=== PATIENT | female | born 1970 | race Caucasian/White ===

== ENCOUNTER → 2017-10-03 | Outpatient (CLI) | payer BC | END | disposition home or self-care (01) | LOC: LABWHC1 10:59 | PROVIDERS: ATTEND Otolaryngology | DX: E06.9 Thyroiditis, unspecified (principal); E03.9 Hypothyroidism, unspecified; J30.89 Other allergic rhinitis | CPT/HCPCS: 36415; 84439; 84443; 86376 ==

== ENCOUNTER → 2018-01-05 | Outpatient (CLI) | payer BC | END | disposition home or self-care (01) | LOC: LABWHC1 17:18 → LAB 17:18 | PROVIDERS: ATTEND Otolaryngology | DX: E03.9 Hypothyroidism, unspecified (principal) | CPT/HCPCS: 84439 ==

== ENCOUNTER → 2018-08-25 | Outpatient (CLI) | payer BC ==
[2018-08-25 16:05] LABS: T4, Free (Free Thyroxine) 0.83 ng/dL (0.78-2.19)
== END ==
LOC: LABWHC1 14:36
PROVIDERS: ATTEND Otolaryngology
DX: E03.9 Hypothyroidism, unspecified (principal); Z79.899 Other long term (current) drug therapy
CPT/HCPCS: 36415; 84439; 84443

== ENCOUNTER → 2019-08-17 | Outpatient (CLI) | payer BC | END | disposition home or self-care (01) | LOC: LABWHC1 13:10 | PROVIDERS: ATTEND Nurse Practitioner Family | DX: E03.9 Hypothyroidism, unspecified (principal) | CPT/HCPCS: 36415; 84439; 84443 ==

== ENCOUNTER 2020-05-12 10:44 | Outpatient (CLI) | payer BC | END 2020-05-12 12:22 | disposition home or self-care (01) | LOC: LABWHC1 10:44 | PROVIDERS: ATTEND Nurse Practitioner Family | DX: Z53.9 Procedure and treatment not carried out, unspecified reason (principal) ==

== ENCOUNTER → 2020-05-12 | Outpatient (CLI) | payer BC ==
[2020-05-12 23:02] LABS: Shrimp IgE 0.16 kU/L; Walnut IgE (Food) 0.69 kU/L
[2020-05-14 14:07] LABS: Beef IgE <0.10 kU/L (<0.10); Beef IgE Class CLASS 0; Crab IgE 0.91 kU/L (<0.10); Crab IgE Class CLASS 2; Lettuce IgE Class CLASS 2; Pork IgE Class CLASS 0
[2020-05-14 14:08] LABS: Apple IgE Class CLASS 2; Onion IgE 3.41 kU/L (<0.10); Onion IgE Class CLASS 2; Salmon IgE <0.10 kU/L (<0.10); Salmon IgE Class CLASS 0; Yeast Bakers/Brew IgE <0.10 kU/L (<0.10); Yeast Bakers/Brew IgE Class CLASS 0
[2020-05-14 14:09] LABS: Celery IgE Class CLASS 2; Chicken IgE Class CLASS 0; Egg Yolk IgE Class CLASS 0; Gluten IgE Class CLASS 1; Lobster IgE 0.32 kU/L (<0.10); Lobster IgE Class CLASS 0/1; Oat IgE Class CLASS 2
[2020-05-14 14:10] LABS: Avocado Class CLASS 3; Banana IgE Class CLASS 3; Chocolate IgE Class CLASS 0; Coffee IgE 0.11 kU/L (<0.10); Coffee IgE Class CLASS 0/1; Cow's Milk IgE Class CLASS 0/1; Egg White IgE <0.10 kU/L (<0.10); Green Bean IgE 2.78 kU/L (<0.10); Green Bean IgE Class CLASS 2; Hazelnut IgE 8.43 kU/L (<0.10); Hazelnut IgE Class CLASS 3; Kiwi IgE 2.18 kU/L (<0.10); Kiwi IgE Class CLASS 2; Peanut IgE 4.51 kU/L (<0.10); Potato IgE 3.65 kU/L (<0.10); Potato IgE Class CLASS 3; Soybean IgE 2.35 kU/L (<0.10); Tea IgE <0.10 kU/L (<0.10); Tea IgE Class CLASS 0
== END | disposition home or self-care (01) ==
LOC: LABWHC1 10:47
PROVIDERS: ATTEND Otolaryngology
DX: J30.89 Other allergic rhinitis (principal)
CPT/HCPCS: 36415; 86003

== ENCOUNTER → 2020-09-22 | Outpatient (CLI) | payer BC ==
[2020-09-23 01:37] LABS: T4, Free (Free Thyroxine) 1.1 ng/dL (0.80-1.80)
[2020-09-23 03:32] LABS: Peanut IgE 0.41 kU/L; Shrimp IgE <0.10 kU/L; Walnut IgE (Food) 0.37 kU/L
== END | disposition home or self-care (01) ==
LOC: LABWHC1 15:20
PROVIDERS: ATTEND Otolaryngology
DX: L50.0 Allergic urticaria (principal); E03.9 Hypothyroidism, unspecified
CPT/HCPCS: 36415; 84439; 84443; 86003

== ENCOUNTER 2021-06-12 08:02 | Day surgery (SDC) | payer BC ==
[2021-06-10 10:19] VITALS: BMI 32.9
[~2021-06-12 08:02] MED LIST: LACTATED RINGERS 1,000 ML IV SCH; LIDOCAINE 1% (10MG/ML) FOR IV START INTRADERMA PRN
[2021-06-12 08:47] VITALS: RESP 16; TEMP 98.5
[2021-06-12] MEDS ORDERED: PROPOFOL 10 MG/ML 20 ML VIAL IV ONE (09:01)
[2021-06-12] MEDS ORDERED: LIDOCAINE 1% INJ 10MG/ML (20 ML MDV) ONE (09:01)
--- NOTE | 2021-06-12 09:28 | P.PCN ---
Date of Procedure: 06/12/21 Procedure(s) Performed: Brief history: Patient is a pleasant 50-year-old white female scheduled for an elective upper endoscopy as well as colonoscopy as a part of evaluation of intermittent dysphagia to solids and prior history of food impaction 10 years ago for which she underwent EGD with dilation. He scheduled for colonoscopy for screening for colon cancer Procedure performed: Esophagogastroduodenoscopy biopsy and balloon dilation Colonoscopy with snare polypectomy Preoperative diagnosis: Intermittent dysphagia to solids Screening for colon cancer Anesthesia: MAC Procedure: After informed consent was obtained from the patient was brought into the endoscopy unit and IV sedation was administered by anesthesia under continuous monitoring. Initially upper endoscopy was done. The Olympus GF 160 video endoscope was inserted inserted into the mouth and esophagus intubated without any difficulty and was gradually advanced into the stomach and duodenum and carefully examined. The bulb and second part of the duodenum appeared normal. The scope was then withdrawn into the stomach adequately insufflated with air and upon careful examination the antrum and body, cardia and fundus appeared normal. The scope was then withdrawn into the esophagus. The GE junction was located at 36 cm to the incisors. There was a small hiatal hernia noted. There was a distal esophagus due to noted in the distal esophagus which was dilated using 12-15 mm balloon in a sequential fashion for a few seconds. The GE junction appeared regular with no erythema erosions or ulcerations. Rest of the esophagus appeared normal. Biopsies were done from midesophagus to rule out eosinophilic esophagitis Patient tolerated the procedure well. At this time the patient continued to remain sedation. Initial digital rectal examination was normal. Olympus CF 160 video colonoscope was then inserted into the rectum and gradually advanced to the cecum without any difficulty. Careful examination was performed as the scope was gradually being withdrawn. The prep was excellent. The cecum, appeared normal. Ascending colon there was a 5 limited polyp that was removed by snare polypectomy. In the transverse colon there was a 5 mm sessile polyp removed by snare polypectomy. Rest of the ascending colon, transverse colon, descending colon, sigmoid colon and rectum appeared normal. Retroflexion was performed in the rectum and no lesions were noted. Patient tolerated the procedure well. Impression: 1. Upper endoscopy revealed distal esophageal stricture status post balloon dilation using 12-15 mm TTS balloon in a sequential fashion and small hiatal hernia 2. Colonoscopy revealed a 5 mm ascending colon polyp and past colon polyp serous posterior polypectomy Recommendations: Findings of this examination were discussed with the patient as well as her family. She was advised to be on a clear liquid diet for lunch today .she will follow with the biopsy results. If the biopsy reveals adenoma she can have a repeat colonoscopy in 5 years.
[2021-06-12 09:45] VITALS: BP 135/77; PULSE 75
== END 2021-06-12 10:25 | disposition home or self-care (01) ==
LOC: ORWHC2ENDO 08:02
PROVIDERS: ATTEND Internal Medicine Gastroenterology
DX: Z12.11 Encounter for screening for malignant neoplasm of colon (principal); D12.2 Benign neoplasm of ascending colon; K20.90 Esophagitis, unspecified without bleeding; K44.9 Diaphragmatic hernia without obstruction or gangrene; Z88.5 Allergy status to narcotic agent; Z91.02 Food additives allergy status; Z79.890 Hormone replacement therapy; Z79.899 Other long term (current) drug therapy
CPT/HCPCS: 88305; 45385; 43239; 43249; J2001; J2704; C1726

== ENCOUNTER → 2022-03-02 | Outpatient (CLI) | payer BC ==
[2022-03-02 23:58] LABS: T4, Free (Free Thyroxine) 1.14 ng/dL (0.800-1.800)
== END | disposition home or self-care (01) ==
LOC: LABWHC1 15:04
PROVIDERS: ATTEND Nurse Practitioner Family
DX: E03.9 Hypothyroidism, unspecified (principal); R51.9 Headache, unspecified
CPT/HCPCS: 36415; 82306; 84439; 84443

== ENCOUNTER → 2022-05-19 | Outpatient (CLI) | payer BC ==
--- NOTE | 2022-05-19 12:01 | FL ---
Patient complained of dysphagia, concern for aspiration. Thin and pudding consistencies were utilized 36 seconds of fluoroscopy time. Please see speech pathology report for findings.
== END | disposition home or self-care (01) ==
LOC: RADFLMAIN 10:51
PROVIDERS: ATTEND Otolaryngology
DX: R13.10 Dysphagia, unspecified (principal)
CPT/HCPCS: 74230

== ENCOUNTER → 2022-05-20 | Outpatient (CLI) | payer BC ==
--- NOTE | 2022-05-20 12:46 | FL ---
ESOPHOGRAM. HISTORY: Dysphagia Esophagram was performed per the air contrast technique. The patient swallowed barium and effervesce nt crystals without difficulty or delay. Esophageal peristalsis and motility appear to be within normal limits. There is no evidence for filling defect, mass or diverticulum. There is a very tiny reducible hiatal hernia. Subsequently single contrast cervical esophagram was performed which fails demonstrate evidence for a spiration penetration or mass. IMPRESSION: There is a very tiny reducible hiatal hernia.
== END | disposition home or self-care (01) ==
LOC: RADUSWWP 11:00
PROVIDERS: ATTEND Otolaryngology
DX: K44.9 Diaphragmatic hernia without obstruction or gangrene (principal)
CPT/HCPCS: 74220

== ENCOUNTER → 2022-06-08 | Outpatient (CLI) | payer BC ==
[2022-06-08 21:04] LABS: Clam IgE <0.10 kU/L; Codfish IgE <0.10 kU/L; Egg White IgE 0.15 kU/L; Peanut IgE 0.17 kU/L; Scallop IgE <0.10 kU/L; Shrimp IgE <0.10 kU/L; Soybean IgE 0.11 kU/L; Walnut IgE (Food) <0.10 kU/L
== END | disposition home or self-care (01) ==
LOC: LABWHC1 09:31
PROVIDERS: ATTEND Otolaryngology
DX: J30.89 Other allergic rhinitis (principal)
CPT/HCPCS: 36415; 82785; 86003; 86376

== ENCOUNTER 2022-07-18 12:50 | Emergency (ER) | payer BC ==
[2022-07-18 13:20] VITALS: BP 118/71; PULSE 79; RESP 16; TEMP 98.9
[2022-07-18] MEDS ORDERED: MORPHINE SULFATE 4 MG/ML SYRINGE IM STA (13:41)
[2022-07-18] MEDS ORDERED: LIDOCAINE 1% PF 10 MG/ML (5 ML AMP) SQ ONE (13:41)
[2022-07-18] MEDS ORDERED: LIDOCAINE 1% INJ 10MG/ML (20 ML MDV) SQ ONE (14:06)
--- NOTE | 2022-07-18 14:08 | XR ---
EXAMINATION TYPE: XR tibia fibula LT DATE OF EXAM: 07/18/2022 COMPARISON: NONE HISTORY: Fall. Pain TECHNIQUE: 2 views FINDINGS: Tibia and fibula appear intact. I see no fracture nor dislocation. Joint spaces are normal. Knee joint and ankle joint appear intact. IMPRESSION: Negative left tibia and fibula exam.
--- NOTE | 2022-07-18 14:09 | XR ---
EXAMINATION TYPE: XR wrist complete LT DATE OF EXAM: 07/18/2022 2:00 PM INDICATION: Patient age:Female; 51 years old; Reason for study: fall; [facility]. COMPARISON: None TECHNIQUE: 4 views of the left wrist. Frontal, navicular, lateral, and oblique. FINDINGS: No acute osseous pathology, joint dislocation, or joint effusion. Minimal soft tissue swell ing of the wrist. IMPRESSION: No acute osseous pathology.
[2022-07-18] MEDS ORDERED: ACET/COD 300 MG/30 MG STARTER PACK 6 TAB BTL PO STA (15:24)
--- NOTE | 2022-07-18 15:25 | ED ---
Wound/Laceration HPI - General Chief Complaint: Wound/Laceration Stated Complaint: lt leg lac Source: patient Mode of arrival: ambulatory Limitations: no limitations - History of Present Illness Initial Comments: Patient is a 51-year-old female presenting to the emergency room after tripping over a small dog fence earlier today landing on the fence causing a laceration to her left lower leg and a bruise and pain to her left wrist. She denies hitting her head or any loss of consciousness. She reports that her tetanus vaccine is up-to-date. She denies any embedment of the fence into the wound on her left lower leg. She has a past medical history significant for multiple allergies which she is on allergy shots for and hypothyroidism. - Related Data Home Medications Medication Instructions Recorded Confirmed Cetirizine HCl [Zyrtec] 10 mg PO DAILY 10/26/17 06/10/21 EPINEPHrine (Auto Inject) [Epipen] 0.3 mg IM ONCE PRN 10/26/17 06/10/21 Fluticasone Nasal [place] [Flonase 2 spr EA NOSTRIL HS PRN 10/26/17 06/10/21 Nasal [place]] Levothyroxine Sodium [Synthroid] 50 mcg PO DAILY 10/26/17 06/10/21 Montelukast Sodium [Singulair] 10 mg PO HS 10/26/17 06/10/21 Previous Rx's Medication Instructions Recorded Sulfamethox-Tmp 800-160Mg [Bactrim 1 tab PO Q12HR 3 Days #6 tab 07/18/22 DS 800-160 mg] Allergies Allergy/AdvReac Type Severity Reaction Status Date / Time gluten Allergy Unknown Verified 07/18/22 13:20 hydromorphone [From Dilaudid] Allergy Rash/Hives Verified 07/18/22 13:20 meperidine [From Demerol] Allergy Rash/Hives Verified 07/18/22 13:20 Milk Containing Products Allergy Unknown Verified 07/18/22 13:20 [Dairy] soy Allergy Unknown Verified 07/18/22 13:20 wheat Allergy Unknown Verified 07/18/22 13:20 Review of Systems ROS Statement: Those systems with pertinent positive or pertinent negative responses have been documented in the HPI. ROS Other: All systems not noted in ROS Statement are negative. Past Medical History Past Medical History: Thyroid Disorder Additional Past Medical History / Comment(s): states multiple food allergies and seasonal allergies, gets allergy shots [id number], hx of EGD with dilation History of Any Multi-Drug Resistant Organisms: None Reported Past Surgical History: Section, Hysterectomy, Orthopedic Surgery, Tonsillectomy Additional Past Surgical History / Comment(s): RIGHT calf muscle release, rt foot mortons neuroma removed, EGD with dilation, rt carpal tunnel, deviated septum Past Anesthesia/Blood Transfusion Reactions: No Reported Reaction Past Psychological History: No Psychological Hx Reported Smoking Status: Never smoker Past Alcohol Use History: None Reported Past Drug Use History: None Reported General Exam Limitations: no limitations Course Vital Signs 07/18/22 13:16 Temperature 98.9 F Pulse Rate 79 Respiratory 16 Rate Blood Pressure 118/71 O2 Sat by Pulse 97 Oximetry Procedures - Laceration Laceration #1 Consent Obtained: verbal consent Indication: laceration Site: lower extremity (5) Size (cm): 5 Description: linear, irregular Depth: simple, single layer Anesthetic Used: lidocaine 1% Anesthesia Technique: local infiltration Pre-repair: wound explored, irrigated extensively, wound margins revised Size of Sutures: 4-0 Number of Sutures: 10 Patient Tolerated Procedure: well, no complications Medical Decision Making - Medical Decision Making 51-year-old female presenting to the emergency room after trip and fall and laceration. Laceration to left lower extremity pain and bruise noted to left upper extremity. Will check x-ray of left upper and lower extremity. Tetanus up-to-date. No indication for laboratory studies. Will await antibiotics and give if fracture of lower extremity were laceration occurred. Will give morphine for pain. X-ray left lower extremity and left wrist without fracture. Laceration closure completed without complications. Localized wound care discussed. Given mechanism of action and location will give short course of Bactrim for prophylaxis. Advise follow-up with suture removal in 7-10 days. Case discussed with Dr. Shah. - Radiology Data Radiology results: report reviewed, image reviewed X-ray tibia-fibula left negative tibia-fibula exam. No fracture or foreign body. X-ray with some left negative for acute osseous process. Disposition Clinical Impression: Laceration, Contusion of left lower arm Disposition: HOME SELF-CARE Condition: Fair Instructions (If sedation given, give patient instructions): Care For Your Stitches (ED), Laceration (DC) Additional Instructions: Please keep wound clean and dry. Please have sutures removed in 7-[address] ease complete course of antibiotics. Monitor for signs and symptoms of infection and return to the emergency room, urgent care or your primary care provider's office if symptoms occur. Please return to the Emergency Department if symptoms worsen or any other concerns. Prescriptions: Sulfamethox-Tmp 800-160Mg [Bactrim DS 800-160 mg] 1 tab PO Q12HR 3 Days #6 tab Is patient prescribed a controlled substance at d/c from ED?: No Referrals: Laith Caraballo MD [Primary Care Provider] - 1-2 days Time of Disposition: 15:23
== END 2022-07-18 20:09 | disposition home or self-care (01) ==
LOC: EC 12:50
DX: S81.812A Laceration without foreign body, left lower leg, initial encounter (principal); S40.022A Contusion of left upper arm, initial encounter; E03.9 Hypothyroidism, unspecified; Z91.018 Allergy to other foods; Z88.5 Allergy status to narcotic agent; Z88.8 Allergy status to other drugs, medicaments and biological substances; Z91.011 Allergy to milk products; Z79.890 Hormone replacement therapy; W01.0XXA Fall on same level from slipping, tripping and stumbling without subsequent striking against object, initial encounter
CPT/HCPCS: 73110; 73590; 99283; 12002; 96372; J2270; J2001

== ENCOUNTER 2022-08-27 11:13 | Day surgery (SDC) | payer BC ==
[2022-08-25 13:07] VITALS: BMI 34.7
[~2022-08-27 11:13] MED LIST changes: -LIDOCAINE 1% (10MG/ML) FOR IV START INTRADERMA PRN
[2022-08-27 12:40] VITALS: TEMP 96.8
[2022-08-27] MEDS ORDERED: PROPOFOL 10 MG/ML 20 ML VIAL IV ONE (13:13)
[2022-08-27] MEDS ORDERED: LIDOCAINE 2% INJ 20 MG/ML (2 ML VIAL) ONE (13:13)
--- NOTE | 2022-08-27 13:27 | P.PCN ---
Date of Procedure: 08/27/22 Procedure(s) Performed: BRIEF HISTORY: Patient is a 51-year-old, pleasant, white female scheduled for an upper endoscopy as a part of evaluation of progressive dysphagia to solids for the last several months duration. She had EGD with dilation a year ago.. PROCEDURE PERFORMED: Esophagogastroduodenoscopy with biopsy and dilation. PREOPERATIVE DIAGNOSIS: Progressive dysphagia to solids. IV sedation per anesthesia. PROCEDURE: After informed consent was obtained, the patient was brought into the endoscopy unit. IV sedation was administered by Anesthesia under continuous monitoring. Initially the Olympus GIF-140 video endoscope was inserted into the mouth. Esophagus intubated without any difficulty. It was gradually advanced into the stomach and duodenum and carefully examined. The bulb and the second part of the duodenum appeared normal. The scope at this time was withdrawn to the stomach, adequately insufflated with air, and upon careful examination, mucosa of the antrum, body, cardia and the fundus appeared normal. The scope was then withdrawn into the esophagus. The GE junction was located at 39 cm from the incisors. Small hiatal hernia noted. There was a distal esophageal Schatzki's ring identified that was dilated using 18 mm TTS balloon for 30 seconds. There was a mucosal tear with oozing identified and hence further dilation was not performed. The rest of the esophagus appeared normal. There were no erosions or ulcerations seen. Multiple biopsies were done from the mid and distal esophagus to rule out eosinophilic esophagitis and the patient tolerated the procedure well. IMPRESSION: 1. Distal esophageal Schatzki's ring status post balloon dilation with 18 mm TTS balloon as described above. 2. Small hiatal hernia. RECOMMENDATIONS: The findings of this examination were discussed with the patient as well as her family. She was advised to follow with the biopsy results. She will remain on a liquid diet for lunch today. Continue omeprazole 20 mg daily and follow reflux measures..
[2022-08-27 14:42] VITALS: BP 127/74; PULSE 78; RESP 18
== END 2022-08-27 14:47 | disposition home or self-care (01) ==
LOC: ORWHC2ENDO 11:13
PROVIDERS: ATTEND Internal Medicine Gastroenterology
DX: K20.90 Esophagitis, unspecified without bleeding (principal); K22.2 Esophageal obstruction; K44.9 Diaphragmatic hernia without obstruction or gangrene; E03.9 Hypothyroidism, unspecified; K21.9 Gastro-esophageal reflux disease without esophagitis; Z88.8 Allergy status to other drugs, medicaments and biological substances; Z90.89 Acquired absence of other organs; Z90.710 Acquired absence of both cervix and uterus; Z79.899 Other long term (current) drug therapy
CPT/HCPCS: 88305; 43239; 43249; J2704; J2001; C1726

== ENCOUNTER → 2023-06-30 | Outpatient (CLI) | payer BC ==
[2023-07-01 02:33] LABS: T4, Free (Free Thyroxine) 1.23 ng/dL (0.80-1.80)
== END | disposition home or self-care (01) ==
LOC: LABWHC1 16:08
PROVIDERS: ATTEND Otolaryngology
DX: E63.8 Other specified nutritional deficiencies (principal); E06.3 Autoimmune thyroiditis
CPT/HCPCS: 36415; 82306; 84439; 84443

== ENCOUNTER 2023-09-11 05:06 | Inpatient (IN) | payer BC ==
[2023-09-11] MEDS ORDERED: SODIUM CHLORIDE 0.9% 500 ML 500 ML IV STA ×2 (05:28→06:19)
[2023-09-11] MEDS ORDERED: MORPHINE SULFATE 4 MG/ML SYRINGE IV STA ×2 (05:29→06:32)
[2023-09-11 06:02] LABS: Basophils % (A) 0 %; Eosinophils # (A) 0.1 k/uL (0-0.7); Eosinophils % (A) 1 %; HCT 45.4 % (34.0-46.0); HGB 15.4 gm/dL (11.4-16.0); Lymphocytes # (A) 1.1 k/uL (1.0-4.8); Lymphocytes % (A) 7 %; MCH 30.1 pg (25.0-35.0); MCHC 33.9 g/dL (31.0-37.0); MCV 88.8 fL (80.0-100.0); Mean Platelet Volume 8.2; Monocytes # (A) 1.4 k/uL (0-1.0); Monocytes % (A) 9 %; Neutrophils # (A) 12.6 k/uL (1.3-7.7); Neutrophils % (A) 82 %; Platelet Count 268 k/uL (150-450); RBC 5.11 m/uL (3.80-5.40); RDW 12.9 % (11.5-15.5); WBC 15.3 k/uL (3.8-10.6)
[2023-09-11 06:13] LABS: ALT 16 U/L (4-34); AST 23 U/L (14-36); African American GFR (CKD) >90 (>60 ml/min/1.73 sqM); Albumin 4.3 g/dL (3.5-5.0); Alkaline Phosphatase 100 U/L (38-126); Amylase 45 U/L (30-110); Anion Gap 12 mmol/L; Blood Urea Nitrogen 9 mg/dL (7-17); Calcium 9.7 mg/dL (8.4-10.2); Carbon Dioxide 24 mmol/L (22-30); Chloride 103 mmol/L (98-107); Glucose 120 mg/dL (74-99); Lipase 59 U/L (23-300); Non-African American GFR(CKD) >90 (>60 ml/min/1.73 sqM); Potassium 3.8 mmol/L (3.5-5.1); Sodium 139 mmol/L (137-145); Total Bilirubin 1.2 mg/dL (0.2-1.3); Total Protein 7.6 g/dL (6.3-8.2)
[2023-09-11] MEDS ORDERED: CEFEPIME 2 GM in SODIUM CHLORIDE 0.9% 100 ML IVPB STA (06:14)
[2023-09-11] MEDS ORDERED: HYDROmorphone 0.5 MG/0.5 ML SYRINGE IVP STA (06:17)
[2023-09-11] MEDS ORDERED: SODIUM CHLORIDE 0.9% 1,000 ML IV STA (06:19)
--- NOTE | 2023-09-11 06:29 | ED ---
Abdominal Pain HPI <Ishmael Edwards - Last Filed: 09/11/23 08:54> - General Source: patient, family Mode of arrival: wheelchair Limitations: no limitations - History of Present Illness MD Complaint: abdominal pain -: days(s) (2) Location: diffuse Radiation: none Migration to: no migration Severity: severe Quality: cramping, fullness Consistency: constant Improves With: nothing Worsens With: nothing Associated Symptoms: nausea <Aman Gonzalez - Last Filed: 09/19/23 08:06> - General Chief Complaint: Abdominal Pain Stated Complaint: Perforated Bowel Time Seen by Provider: 09/11/23 05:22 - History of Present Illness Initial Comments: This patient is a 52-year-old woman who presents with abdominal pain. She states is present diffusely. Probably worse in the upper abdomen than lower abdomen now. The patient states it is been going on 2-3 days, getting progressively worse. She states that the pain is now so severe she cannot eat anything. She has had nausea but no vomiting. Patient states she also has not had what she would consider be a normal bowel movement in over 24 hours. She has not noted fever or chills. No change in urination. (Aman Gonzalez) - Related Data Home Medications Medication Instructions Recorded Confirmed Cetirizine HCl [Zyrtec] 10 mg PO DAILY 10/26/17 09/11/23 EPINEPHrine (Auto Inject) [Epipen] 0.3 mg IM ONCE PRN 10/26/17 09/11/23 Levothyroxine Sodium [Synthroid] 50 mcg PO DAILY 10/26/17 09/11/23 Omeprazole [PriLOSEC] 40 mg PO AC-SUPPER 08/25/22 09/11/23 Albuterol Inhaler [Ventolin Hfa 1 - 2 puff INHALATION RT-Q6H PRN 09/11/23 09/11/23 Inhaler] Azelastine/Fluticasone 1 spray EA NOSTRIL BID PRN 09/11/23 09/11/23 [Azelastin-Flutic 137-50Mcg Spr] Ergocalciferol (Vitamin D2) 1,250 mcg PO MO 09/11/23 09/11/23 [Drisdol (50,000 Iu)] Olopatadine HCl [Pataday] 1 drop BOTH EYES BID PRN 09/11/23 09/11/23 Previous Rx's Medication Instructions Recorded Acetaminophen Tab [Tylenol] 1,000 mg PO Q6HR PRN #30 tablet 09/14/23 cefUROXime axetiL [Ceftin] 500 mg PO BID 7 Days #14 tab 09/14/23 metroNIDAZOLE [Flagyl] 500 mg PO TID 7 Days #21 tab 09/14/23 Allergies Allergy/AdvReac Type Severity Reaction Status Date / Time gluten Allergy Unknown Verified 09/11/23 12:20 hydromorphone [From Dilaudid] Allergy Rash/Hives Verified 09/11/23 12:20 meperidine [From Demerol] Allergy Rash/Hives Verified 09/11/23 12:20 Milk Containing Products Allergy Unknown Verified 09/11/23 12:20 (Dairy) [Dairy] soy Allergy Anaphylaxis Verified 09/11/23 12:20 wheat Allergy Unknown Verified 09/11/23 12:20 amoxicillin AdvReac Nausea & Verified 09/11/23 12:20 Vomiting & Diarrhea ibuprofen AdvReac Nausea & Verified 09/11/23 12:20 Vomiting & Diarrhea Review of Systems ROS Other: All systems not noted in ROS Statement are negative. <Ishmael Edwards - Last Filed: 09/11/23 08:54> ROS Other: All systems not noted in ROS Statement are negative. Constitutional: Denies: fever, chills Respiratory: Denies: cough, dyspnea Cardiovascular: Denies: chest pain, palpitations, edema, syncope Gastrointestinal: Reports: abdominal pain, nausea, constipation. Denies: vomiting, diarrhea, hematemesis, melena, hematochezia Genitourinary: Denies: dysuria, frequency, hematuria Musculoskeletal: Denies: back pain Skin: Denies: rash Neurological: Denies: headache, weakness, numbness <Aman Gonzalez - Last Filed: 09/19/23 08:06> ROS Statement: Those systems with pertinent positive or pertinent negative responses have been documented in the HPI. Past Medical History Past Medical History: GERD/Reflux, Thyroid Disorder Additional Past Medical History / Comment(s): Multiple food allergies and seasonal allergies, gets allergy shots Q7days. Hashimotos. History of Any Multi-Drug Resistant Organisms: None Reported Past Surgical History: Section, Hysterectomy, Orthopedic Surgery, Tonsillectomy Additional Past Surgical History / Comment(s): Right calf muscle release, right foot mortons neuroma removed, EGD with dilation, right carpal tunnel surgery, deviated septum surgery. Past Anesthesia/Blood Transfusion Reactions: No Reported Reaction, Motion Sickness Past Psychological History: No Psychological Hx Reported Smoking Status: Never smoker Past Alcohol Use History: None Reported Past Drug Use History: None Reported - Past Family History Mother Family Medical History: No Reported History <Aman Gonzalez - Last Filed: 09/19/23 08:06> General Exam Limitations: no limitations General appearance: alert, in no apparent distress Head exam: Present: atraumatic, normocephalic Eye exam: Present: normal appearance. Absent: scleral icterus, conjunctival injection ENT exam: Present: mucous membranes dry Neck exam: Present: normal inspection, full ROM Respiratory exam: Present: normal lung sounds bilaterally. Absent: respiratory distress, wheezes, rales, rhonchi, stridor Cardiovascular Exam: Present: regular rate, normal rhythm, normal heart sounds. Absent: systolic murmur, diastolic murmur, rubs, gallop GI/Abdominal exam: Present: soft, distended. Absent: tenderness, guarding, rebound, rigid, mass Extremities exam: Present: normal inspection, normal capillary refill. Absent: pedal edema, calf tenderness Back exam: Present: normal inspection. Absent: CVA tenderness (R), CVA tenderness (L) Neurological exam: Present: alert Skin exam: Present: warm, dry, intact, normal color. Absent: rash <Aman Gonzalez - Last Filed: 09/19/23 08:06> Course Vital Signs 09/11/23 09/11/23 09/11/23 05:14 07:45 09:00 Temperature 97.8 F Pulse Rate 117 H 98 98 Respiratory 20 16 16 Rate Blood Pressure 104/63 132/87 132/89 O2 Sat by Pulse 96 92 L 96 Oximetry 09/11/23 09/11/23 09/11/23 10:00 11:00 11:30 Temperature Pulse Rate 96 Respiratory 16 18 18 Rate Blood Pressure 119/83 127/83 126/78 O2 Sat by Pulse 95 96 95 Oximetry 09/11/23 09/11/23 09/11/23 12:00 12:30 13:00 Temperature Pulse Rate Respiratory 18 18 18 Rate Blood Pressure 126/78 103/61 103/61 O2 Sat by Pulse 95 97 Oximetry 09/11/23 09/11/23 09/11/23 13:30 15:04 17:35 Temperature Pulse Rate 124 H 106 H Respiratory 19 18 18 Rate Blood Pressure 109/95 115/91 99/73 O2 Sat by Pulse 92 L 92 L Oximetry 09/11/23 09/12/23 09/12/23 20:26 00:00 03:00 Temperature 98.2 F Pulse Rate 92 95 82 Respiratory 18 16 16 Rate Blood Pressure 106/68 104/69 103/74 O2 Sat by Pulse 95 96 95 Oximetry 09/12/23 09/12/23 06:42 07:37 Temperature 97.9 F Pulse Rate 79 68 Respiratory 16 16 Rate Blood Pressure 100/63 145/86 O2 Sat by Pulse 95 98 Oximetry Medical Decision Making - Lab Data Result diagrams: 09/11/23 05:34 09/11/23 05:34 <Ishmael Edwards - Last Filed: 09/11/23 08:54> - Lab Data Result diagrams: 09/14/23 06:03 09/14/23 06:03 <Aman Gonzalez - Last Filed: 09/19/23 08:06> - Medical Decision Making Patient signed out to me by the previous provider. Briefly, patient is a 52-year-old female who presents emergency Department with multiple tase of slight diffuse abdominal pain. Worse in the right upper abdomen than elsewhere. Seems to be or focal over the right side of the abdomen as well. She is endorse nausea but no emesis. Decreased bowel movements over patient has not been eating as much. No known fevers or chills. No chest pain or shortness of breath. Presents for further evaluation at this time. Patient's labs were remarkable for leukocytosis of 15. Remainder the patient's labs including hepatobiliary labs lactic acid within normal limits. CT abdomen and pelvis is pending. As interpreted by myself reveals a large gallbladder with at least 2 cm gallstone seen near the neck with certain pericholecystic inflammation and wall thickening. Concern for cholecystitis. Radiology concurs. I elected the patient as well as family. Patient be admitted to the hospital. Patient received a dose of cefepime. She has an amoxicillin ALLERGY and there fore started on IV Rocephin and Flagyl for antibiotics. IV pain medications as needed. Patient made nothing by mouth. IV fluid hydration hourly. Discussed the case with the on-call surgeon Dr. Weaver who accepted the consult but requested medicine admission. I spoke with the admitting physician, Dr. Gallo who accepted the admission. Diagnosis/symptom? @ -Cholecystitis Acute, or Chronic, or Acute on Chronic? @ -Acute Uncomplicated (without systemic symptoms) or Complicated (systemic symptoms)? @ -Complicated Side effects of treatment? @ -none Exacerbation, Progression, or Severe Exacerbation] @ -no Poses a threat to life or bodily function? @ -Possibly, yes (Ishmael Edwards) Was pt. sent in by a medical professional or institution (, PA, EDUCATIONAL/DEVELOPMENT ASSISTANT, urgent care, hospital, or senior care...) When possible be specific @ -[No] Did you speak to anyone other than the patient for history (EMS, parent, family, police, friend...)? What history was obtained from this source @ -[No] Did you review nursing and triage notes (agree or disagree)? Why? @ -[I reviewed and agree with nursing and triage notes] Were old charts reviewed (outside hosp., previous admission, EMS record, old EKG, old radiological studies, urgent care reports/EKG's, senior care records)? Report findings @ -[No old charts were reviewed] Differential Diagnosis (chest pain, altered mental status, abdominal pain women, abdominal pain men, vaginal bleeding, weakness, fever, dyspnea, syncope, headache, dizziness, GI bleed, back pain, seizure, CVA, palpatations, mental health, musculoskeletal)? @ -[Differential Abdominal Pain Women: Appendicitis, Cholecystitis, diverticulosis, ischemic bowel, pancreatitis, hepatitis, UTI, gastroenteritis, AAA, incarcerated hernia, bowel obstruction, constipation, inflammatory bowel, hepatitis, peptic ulcer disease, splenic infa rction, perforated viscus, vulvitis, ovarian torsion, PID, kidney stone, placenta abruption, this is not meant to be an all-inclusive list EKG interpreted by me (3pts min.). @ -[As above] X-rays interpreted by me (1pt min.). @ -[None done] CT interpreted by me (1pt min.). @ -[The CT is interpreted by Dr. Edwadrs, see above U/S interpreted by me (1pt. min.). @ -[None done] What testing was considered but not performed or refused? (CT, X-rays, U/S, labs)? Why? @ -[None] What meds were considered but not given or refused? Why? @ -[None] Did you discuss the management of the patient with other professionals (professionals i.e. , PA, EDUCATIONAL/DEVELOPMENT ASSISTANT, lab, RT, psych nurse, social sciences department chair, autocad detailer, teacher, bsa/aml compliance officer, child support case officer)? Give summary @ -[No] Was smoking cessation discussed for >3mins.? @ -[No] Was critical care preformed (if so, how long)? @ -[No] Were there social determinants of health that impacted care today? How? (Homelessness, low income, unemployed, alcoholism, drug addiction, transportation, low edu. Level, literacy, decrease access to med. care, retirement, rehab)? @ -[No] Was there de-escalation of care discussed even if they declined (Discuss DNR or withdrawal of care, Hospice)? DNR status @ -[No] What co-morbidities impacted this encounter? (DM, HTN, Smoking, COPD, CAD, Cancer, CVA, ARF, Chemo, Hep., AIDS, mental health diagnosis, sleep apnea, morbid obesity)? @ -[None] (Aman Gonzalez) - Lab Data Lab Results 09/11/23 09/11/23 09/11/23 Range/Units 05:34 05:34 05:34 WBC 15.3 H (3.8-10.6) k/uL RBC 5.11 (3.80-5.40) m/uL Hgb 15.4 (11.4-16.0) gm/dL Hct 45.4 (34.0-46.0) % MCV 88.8 (80.0-100.0) fL MCH 30.1 (25.0-35.0) pg MCHC 33.9 (31.0-37.0) g/dL RDW 12.9 (11.5-15.5) % Plt Count 268 (150-450) k/uL Estimated Plt Count (Adequate) MPV 8.2 Immature Gran % (Auto) % Absolute Nucleated RBC % Neutrophils % 82 % Lymphocytes % 7 % Monocytes % 9 % Eosinophils % 1 % Basophils % 0 % Immature Gran # X 10*3/uL Neutrophils # 12.6 H (1.3-7.7) k/uL Lymphocytes # 1.1 (1.0-4.8) k/uL Monocytes # 1.4 H (0-1.0) k/uL Eosinophils # 0.1 (0-0.7) k/uL Basophils # 0.0 (0-0.2) k/uL NRBC/100 WBC Diff (0.00-0.01) X 10*3/uL Manual Slide Review RBC Morphology (Normal) Sodium (137-145) mmol/L Potassium (3.5-5.1) mmol/L Chloride (98-107) mmol/L Carbon Dioxide (22-30) mmol/L Anion Gap mmol/L BUN (7-17) mg/dL Creatinine (0.52-1.04) mg/dL Est GFR (CKD-EPI) (>=60) Est GFR (CKD-EPI)AfAm (>60 ml/min/1.73 sqM) Est GFR (CKD-EPI)NonAf (>60 ml/min/1.73 sqM) BUN/Creatinine Ratio (12.00-20.00) Ratio Glucose (74-99) mg/dL Plasma Lactic Acid Nirmal (0.7-2.0) mmol/L Calcium (8.4-10.2) mg/dL Total Bilirubin (0.2-1.3) mg/dL AST (14-36) U/L ALT (4-34) U/L Alkaline Phosphatase (38-126) U/L Total Protein (6.3-8.2) g/dL Albumin (3.5-5.0) g/dL Amylase (30-110) U/L Lipase (23-300) U/L Urine Color Yellow Urine Appearance Clear (Clear) Urine pH 5.5 (5.0-8.0) Ur Specific [place] 1.024 (1.001-1.035) Urine Protein 1+ H (Negative) Urine Glucose (UA) Negative (Negative) Urine Ketones 2+ H (Negative) Urine Blood Negative (Negative) Urine Nitrite Negative (Negative) Urine Bilirubin Negative (Negative) Urine Urobilinogen <2.0 (<2.0) mg/dL Ur Leukocyte Esterase Small H (Negative) Urine WBC 2 (0-5) /hpf Ur Squamous Epith Cells 5 H (0-4) /hpf Urine Mucus Few H (None) /hpf Urine HCG, Qual Not Detected (Not Detectd) 09/11/23 09/11/23 09/12/23 Range/Units 05:34 05:34 06:04 WBC 12.36 H (3.8-10.6) k/uL RBC 4.39 (3.80-5.40) m/uL Hgb 12.9 (11.4-16.0) gm/dL Hct 40.6 (34.0-46.0) % MCV 92.5 (80.0-100.0) fL MCH 29.4 (25.0-35.0) pg MCHC 31.8 L (31.0-37.0) g/dL RDW 13.1 (11.5-15.5) % Plt Count 204 (150-450) k/uL Estimated Plt Count Adequate (Adequate) MPV 11.8 Immature Gran % (Auto) 0.30 % Absolute Nucleated RBC 0 % Neutrophils % 68.0 % Lymphocytes % 16.8 % Monocytes % 13.0 % Eosinophils % 1.6 % Basophils % 0.3 % Immature Gran # 0.04 X 10*3/uL Neutrophils # 8.39 H (1.3-7.7) k/uL Lymphocytes # 2.08 (1.0-4.8) k/uL Monocytes # 1.61 H (0-1.0) k/uL Eosinophils # 0.20 (0-0.7) k/uL Basophils # 0.04 (0-0.2) k/uL NRBC/100 WBC Diff 0 (0.00-0.01) X 10*3/uL Manual Slide Review Morph Only RBC Morphology Normal (Normal) Sodium 139 (137-145) mmol/L Potassium 3.8 (3.5-5.1) mmol/L Chloride 103 (98-107) mmol/L Carbon Dioxide 24 (22-30) mmol/L Anion Gap 12 mmol/L BUN 9 (7-17) mg/dL Creatinine 0.73 (0.52-1.04) mg/dL Est GFR (CKD-EPI) (>=60) Est GFR (CKD-EPI)AfAm >90 (>60 ml/min/1.73 sqM) Est GFR (CKD-EPI)NonAf >90 (>60 ml/min/1.73 sqM) BUN/Creatinine Ratio (12.00-20.00) Ratio Glucose 120 H (74-99) mg/dL Plasma Lactic Acid Nirmal 1.1 (0.7-2.0) mmol/L Calcium 9.7 (8.4-10.2) mg/dL Total Bilirubin 1.2 (0.2-1.3) mg/dL AST 23 (14-36) U/L ALT 16 (4-34) U/L Alkaline Phosphatase 100 (38-126) U/L Total Protein 7.6 (6.3-8.2) g/dL Albumin 4.3 (3.5-5.0) g/dL Amylase 45 (30-110) U/L Lipase 59 (23-300) U/L Urine Color Urine Appearance (Clear) Urine pH (5.0-8.0) Ur Specific [place] (1.001-1.035) Urine Protein (Negative) Urine Glucose (UA) (Negative) Urine Ketones (Negative) Urine Blood (Negative) Urine Nitrite (Negative) Urine Bilirubin (Negative) Urine Urobilinogen (<2.0) mg/dL Ur Leukocyte Esterase (Negative) Urine WBC (0-5) /hpf Ur Squamous Epith Cells (0-4) /hpf Urine Mucus (None) /hpf Urine HCG, Qual (Not Detectd) 09/12/23 Range/Units 06:04 WBC (3.8-10.6) k/uL RBC (3.80-5.40) m/uL Hgb (11.4-16.0) gm/dL Hct (34.0-46.0) % MCV (80.0-100.0) fL MCH (25.0-35.0) pg MCHC (31.0-37.0) g/dL RDW (11.5-15.5) % Plt Count (150-450) k/uL Estimated Plt Count (Adequate) MPV Immature Gran % (Auto) % Absolute Nucleated RBC % Neutrophils % % Lymphocytes % % Monocytes % % Eosinophils % % Basophils % % Immature Gran # X 10*3/uL Neutrophils # (1.3-7.7) k/uL Lymphocytes # (1.0-4.8) k/uL Monocytes # (0-1.0) k/uL Eosinophils # (0-0.7) k/uL Basophils # (0-0.2) k/uL NRBC/100 WBC Diff (0.00-0.01) X 10*3/uL Manual Slide Review RBC Morphology (Normal) Sodium 141 (137-145) mmol/L Potassium 3.6 (3.5-5.1) mmol/L Chloride 104 (98-107) mmol/L Carbon Dioxide 24.0 (22-30) mmol/L Anion Gap 13.00 H mmol/L BUN 9.7 (7-17) mg/dL Creatinine 0.8 (0.52-1.04) mg/dL Est GFR (CKD-EPI) 89 (>=60) Est GFR (CKD-EPI)AfAm (>60 ml/min/1.73 sqM) Est GFR (CKD-EPI)NonAf (>60 ml/min/1.73 sqM) BUN/Creatinine Ratio 12.12 (12.00-20.00) Ratio Glucose 92 (74-99) mg/dL Plasma Lactic Acid Nirmal (0.7-2.0) mmol/L Calcium 8.7 (8.4-10.2) mg/dL Total Bilirubin (0.2-1.3) mg/dL AST (14-36) U/L ALT (4-34) U/L Alkaline Phosphatase (38-126) U/L Total Protein (6.3-8.2) g/dL Albumin (3.5-5.0) g/dL Amylase (30-110) U/L Lipase (23-300) U/L Urine Color Urine Appearance (Clear) Urine pH (5.0-8.0) Ur Specific [place] (1.001-1.035) Urine Protein (Negative) Urine Glucose (UA) (Negative) Urine Ketones (Negative) Urine Blood (Negative) Urine Nitrite (Negative) Urine Bilirubin (Negative) Urine Urobilinogen (<2.0) mg/dL Ur Leukocyte Esterase (Negative) Urine WBC (0-5) /hpf Ur Squamous Epith Cells (0-4) /hpf Urine Mucus (None) /hpf Urine HCG, Qual (Not Detectd) Disposition Time of Disposition: 08:28 <Ishmael Edwards - Last Filed: 09/11/23 08:54> <Aman Gonzalez - Last Filed: 09/19/23 08:06> Clinical Impression: Cholecystitis Disposition: ADMITTED IP TO THIS HOSP Condition: Good
--- NOTE | 2023-09-11 08:09 | CT ---
EXAMINATION TYPE: CT abdomen pelvis wo con CT DLP: mGycm, Automated exposure control for dose reduction was used. DATE OF EXAM: 09/11/2023 6:02 AM COMPARISON: CT chest abdomen and pelvis 10/26/2017 CLINICAL INDICATION:Female, 52 years old with history of diffuse abd pain; TECHNIQUE: Axial CT of the abdomen and pelvis. Sagittal and coronal reformats were created on a [employer] workstation. Contrast used: mL of , (none if empty) Oral contrast used: (none if empty) FINDINGS: Exam is limited by lack of contrast. LOWER CHEST: Normal heart size. Trace pericardial fluid. Mild subsegmental atelectasis in the lung ba ses. ABDOMEN LIVER: Unremarkable GALLBLADDER AND BILE DUCTS: There is a 2.3 cm calcified lamellated gallstone seen towards the neck. T he gallbladder appears hydropic measuring about 9.5 cm in length and 4.5 cm transverse. There is esha cholecystic inflammation suggested, with wall thickening and/or pericholecystic fluid seen. PANCREAS: Unremarkable. SPLEEN: Unremarkable. ADRENAL GLANDS: Unremarkable. KIDNEYS AND URETERS: No evidence of hydronephrosis or renal calculus. The ureters are unremarkable. PELVIS BLADDER: Incompletely distended but grossly unremarkable. REPRODUCTIVE: The uterus is surgically absent. ABDOMEN & PELVIS STOMACH AND BOWEL: Stomach and duodenum are unremarkable. Remainder of small bowel appears nondistend ed. Appendix is partially filled with hyperdense material, does not appear dilated or inflamed. There is moderate colonic stool on the right, with minimal distally. Speckled increased attenuation of the colonic contents, greatest on the right, may be due to medication or other ingested radiodense mater ial. Fatty infiltration of the ileocecal valve noted. PERITONEUM/RETROPERITONEUM: No evidence of pneumoperitoneum or free fluid. VASCULATURE: No evidence of aortic aneurysm. MUSCULOSKELETAL: No acute osseous abnormalities LYMPH NODES: No gross evidence for lymphadenopathy. SOFT TISSUE/ABDOMINAL WALL: Unremarkable IMPRESSION: 1. Cholelithiasis, with an abnormal appearance of the gallbladder strongly suggestive of acute sergio cystitis. 2. Other chronic and likely incidental findings, as described above.
[2023-09-11] MEDS ORDERED: NALOXONE 0.4 MG/ML 1 ML VIAL IV PRN (08:41)
[2023-09-11] MEDS ORDERED: MORPHINE SULFATE 4 MG/ML SYRINGE IV PRN (08:41)
--- NOTE | 2023-09-11 09:35 | P.HPIM ---
History of Present Illness H&P Date: 09/11/23 History of Presenting Illness: Patient is a very pleasant 52-year-old female with a past medical history of Gurwinder's thyroiditis with hypothyroidism, GERD, and multiple medication ALLERGIES. She presented to the emergency department with a chief complaint of abdominal pain and nausea. Patient reports diffuse upper abdominal pain beginning on Ezequiel and progressively worsening. Patient reports initially she contributed with food ALLERGIES as she has multiple food ALLERGIES and sensitivities but states that this pain significantly worsened and radiated throughout her entire abdomen much worse than she had felt in the past. Patient reports in addition this has been accompanied by significant nausea, chills, and diaphoresis. She denies experiencing any episodes of vomiting but does report limited oral intake since Tuesday. She denies having any known fevers, chest pain, palpitations, shortness of breath, vomiting, hematemesis, or experiencing any changes in her urination or bowel function. She underwent full evaluation in the emergency department. Vital signs upon arrival show patient to have tachycardic heart rate in 117 bpm, blood pressure 104/63, respiratory rate 20, temp 97.8F, SpO2 96% on room air. EKG completed showing sinus tachycardia at 100 bpm with no significant T-wave or ST abnormalities showing no signs of acute ischemia upon personal review and interpretation. Labs completed and reviewed. CBC showing leukocytosis with WBC count of 15.3. BMP and liver profile were unremarkable. Lactic acid normal findings at 1.1. Amylase 45 and Lipase 59. Urinalysis was a contaminated specimen showing no signs concerning for infection. CT abdomen and pelvis was completed the radiology report stating cholelithiasis with abnormal appearance of the gallbladder strongly suggestive of acute cholecystitis. Patient was admitted under our are with consultation to general surgery. Review of systems: Pertinent positives and negatives as discussed in HPI, a complete review of systems was performed and all other systems are negative. Physical exam: Vital signs reviewed and stable. General: Nontoxic, no distress and appears stated age. Derm: Skin warm and dry, normal coloration for ethnicity. Head: Atraumatic, normocephalic and symmetric. Eyes: EOMs intact, no lid lag, and anicteric sclera Mouth: no lip lesions, mucus membranes moist Cardiovascular: regular rate and rhythm with normal S1S2, no murmur, positive posterior tibial pulses bilaterally, and cap refill < 2 seconds. Lungs: Respirations even, regular, and unlabored on room air. Lungs CTA bilaterally, no rhonchi, no rales, no wheezing, and no accessory muscle usage. Abdominal: soft, diffuse tenderness throughout abdomen worsened throughout right upper quadrant and flank Ext: ROM intact. No gross muscle atrophy, no edema, no contractures Neuro: Speech clear, face symmetrical and CN II-XII grossly intact with no noted focal neuro deficits Psych: Alert and oriented to person, place, time, and situation. Appropriate and pleasant affect. Assessment and Plan of Care: Acute cholecystitis Intractable abdominal pain and nausea, secondary to above -Continue IV antibiotics with Flagyl 500 mg every 8 hours and Rocephin 1 g every 24 hours. -Symptomatic care and pain management with morphine 4 mg IVP every 3 hours as needed for severe pain and scheduled Toradol 14 mg every 6 hours. -NPO until evaluated by general surgery team and orders given to advance diet. -Continue IV fluid hydration 0.9% normal saline at 130 mL's per hour. Presurgical clearance -METS score > 4 -NSQIP surgical risks were completed. Patient is at a below average risk of serious complications, cardiac complications, and a below average risk of . -Patient is medically optimized for surgery at this time with no recommendations of further testing. Hypothyroidism Patient to continue daily medication regimen with Synthroid 50 g daily. GERD Hold omeprazole in place patient on Protonix 40 mg IVP daily. Data reviewed: Vital signs upon arrival show patient to have tachycardic heart rate in 117 bpm, blood pressure 104/63, respiratory rate 20, temp 97.8F, SpO2 96% on room air. -EKG completed showing sinus tachycardia at 100 bpm, low voltage but showing no significant T-wave or ST abnormalities showing no signs of acute ischemia upon personal review and interpretation. Labs completed and reviewed. CBC showing leukocytosis with WBC count of 15.3. BMP and liver profile were unremarkable. Lactic acid normal findings at 1.1. Amylase 45 and Lipase 59. Urinalysis was a contaminated specimen showing no signs concerning for infection. CT abdomen and pelvis was completed the radiology report stating cholelithiasis with abnormal appearance of the gallbladder strongly suggestive of acute cholecystitis. The patient is admitted with an anticipated greater than 2 midnight stay for evaluation of acute cholecystitis CODE STATUS: Full code DVT prophylaxis: heparin Discussed with: patient, patient's at bedside, RN, and ED physician Anticipated discharge date: clinical course to determine Anticipated discharge place: home Patient was seen independently by Nurse Practitioner. This document was prepared using [employer] dictation software. Please allow for errors in tile helper while rare they do occur. Past Medical History Past Medical History: GERD/Reflux, Thyroid Disorder Additional Past Medical History / Comment(s): Multiple food allergies and seasonal allergies, gets allergy shots Q7days. Hashimotos. History of Any Multi-Drug Resistant Organisms: None Reported Past Surgical History: Section, Hysterectomy, Orthopedic Surgery, Tonsillectomy Additional Past Surgical History / Comment(s): Right calf muscle release, right foot mortons neuroma removed, EGD with dilation, right carpal tunnel surgery, deviated septum surgery. Past Anesthesia/Blood Transfusion Reactions: No Reported Reaction, Motion Sickness Past Psychological History: No Psychological Hx Reported Smoking Status: Never smoker Past Alcohol Use History: None Reported Past Drug Use History: None Reported - Past Family History Mother Family Medical History: No Reported History Medications and Allergies Home Medications Medication Instructions Recorded Confirmed Type Cetirizine HCl [Zyrtec] 10 mg PO DAILY 10/26/17 09/11/23 History EPINEPHrine (Auto Inject) [Epipen] 0.3 mg IM ONCE PRN 10/26/17 09/11/23 History Levothyroxine Sodium [Synthroid] 50 mcg PO DAILY 10/26/17 09/11/23 History Omeprazole [PriLOSEC] 40 mg PO AC-SUPPER 08/25/22 09/11/23 History Albuterol Inhaler [Ventolin Hfa 1 - 2 puff INHALATION RT-Q6H PRN 09/11/23 09/11/23 History Inhaler] Azelastine/Fluticasone 1 spray EA NOSTRIL BID PRN 09/11/23 09/11/23 History [Azelastin-Flutic 137-50Mcg Spr] Ergocalciferol (Vitamin D2) 1,250 mcg PO MO 09/11/23 09/11/23 History [Drisdol (50,000 Iu)] Olopatadine HCl [Pataday] 1 drop BOTH EYES BID PRN 09/11/23 09/11/23 History Allergies Allergy/AdvReac Type Severity Reaction Status Date / Time gluten Allergy Unknown Verified 09/11/23 12:20 hydromorphone [From Dilaudid] Allergy Rash/Hives Verified 09/11/23 12:20 meperidine [From Demerol] Allergy Rash/Hives Verified 09/11/23 12:20 Milk Containing Products Allergy Unknown Verified 09/11/23 12:20 (Dairy) [Dairy] soy Allergy Anaphylaxis Verified 09/11/23 12:20 wheat Allergy Unknown Verified 09/11/23 12:20 amoxicillin AdvReac Nausea & Verified 09/11/23 12:20 Vomiting & Diarrhea ibuprofen AdvReac Nausea & Verified 09/11/23 12:20 Vomiting & Diarrhea Physical Exam Vitals: Vital Signs Temp Pulse Resp BP Pulse Ox 09/11/23 07:45 98 16 132/87 92 L 09/11/23 05:14 97.8 F 117 H 20 104/63 96 Intake and Output 09/10/23 09/11/23 09/11/23 22:59 06:59 14:59 Other: Weight 86.183 kg Results CBC & Chem 7: 09/11/23 05:34 09/11/23 05:34 Labs: Abnormal Lab Results - Last 24 Hours (Table) 09/11/23 09/11/23 Range/Units 05:34 05:34 WBC 15.3 H (3.8-10.6) k/uL Neutrophils # 12.6 H (1.3-7.7) k/uL Monocytes # 1.4 H (0-1.0) k/uL Glucose 120 H (74-99) mg/dL
[2023-09-11] MEDS: metroNIDAZOLE-NS PMX 500 MG in SALINE 1 100ML.BAG IVPB SCH ×2 (09:55→15:13)
[2023-09-11] MEDS: PANTOPRAZOLE 40 MG/10 ML VIAL IVP SCH (10:27)
[2023-09-11] MEDS: ONDANSETRON 4 MG/2 ML VIAL IVP PRN (10:27)
[2023-09-11] MEDS: LEVOTHYROXINE 50 MCG TAB PO SCH (10:27)
[2023-09-11 10:29] LABS: Appearance,Urine Clear (Clear); Bilirubin,Urine Negative (Negative); Blood,Urine Negative (Negative); Color,Urine Yellow; Glucose,Urine (UA) Negative (Negative); Ketones,Urine 2+ (Negative); Leukocyte Esterase,Urine Small (Negative); Mucus,Urine Few /hpf; Nitrite,Urine Negative (Negative); PH, Urine 5.5 (5.0-8.0); Protein,Urine 1+ (Negative); Specific Gravity,Urine 1.024 (1.001-1.035); Squamous Epithelial Cell,Urine 5 /hpf (0-4); Urobilinogen,Urine <2.0 mg/dL (<2.0); WBC,Urine 2 /hpf (0-5)
--- NOTE | 2023-09-11 11:08 | P.GSCN ---
History of Present Illness Consult date: 09/11/23 History of present illness: She presents with 4 day history of abdominal pain after eating grilled chicken and kazakh fries. She had eaten fries in many years. She has personal history of esophageal stricture and had dilation 1 year ago in August 2022. Her family is at bedside. She denies any prior stress test or cardiac work up for her epigastric pain. CT independently reviewed shows large gallstone. Recommend cardiac risk assessment as her last EKG in 2016 was abnormal without any prior work-up. She is elevated risk. Pending surgical intervention after completion of cardiology assessment. May have clear liquid diet. Recommend antibiotics. Risks of surgery reviewed. Recommend US for assessment of common bile duct and stones. Past Medical History Past Medical History: GERD/Reflux, Thyroid Disorder Additional Past Medical History / Comment(s): Multiple food allergies and seasonal allergies, gets allergy shots Q7days. Hashimotos. History of Any Multi-Drug Resistant Organisms: None Reported Past Surgical History: Section, Hysterectomy, Orthopedic Surgery, Tonsillectomy Additional Past Surgical History / Comment(s): Right calf muscle release, right foot mortons neuroma removed, EGD with dilation, right carpal tunnel surgery, deviated septum surgery. Past Anesthesia/Blood Transfusion Reactions: No Reported Reaction, Motion Sickness Past Psychological History: No Psychological Hx Reported Smoking Status: Never smoker Past Alcohol Use History: None Reported Past Drug Use History: None Reported - Past Family History Mother Family Medical History: No Reported History Medications and Allergies Home Medications Medication Instructions Recorded Confirmed Type Cetirizine HCl [Zyrtec] 10 mg PO HS 10/26/17 08/27/22 History EPINEPHrine (Auto Inject) [Epipen] 0.3 mg IM ONCE PRN 10/26/17 08/27/22 History Fluticasone Nasal [place] [Flonase 2 spr EA NOSTRIL HS PRN 10/26/17 08/27/22 History Nasal [place]] Levothyroxine Sodium [Synthroid] 50 mcg PO QAM 10/26/17 08/27/22 History Montelukast Sodium [Singulair] 10 mg PO HS 10/26/17 08/27/22 History Cholecalciferol [Vitamin D3 (25 100 mcg PO DAILY 08/25/22 08/27/22 History Mcg = 1000 Iu)] Omeprazole [PriLOSEC] 40 mg PO AC-SUPPER 10/12/22 10/14/22 History Allergies Allergy/AdvReac Type Severity Reaction Status Date / Time gluten Allergy Unknown Verified 09/11/23 05:18 hydromorphone [From Dilaudid] Allergy Rash/Hives Verified 09/11/23 05:18 meperidine [From Demerol] Allergy Rash/Hives Verified 09/11/23 05:18 Milk Containing Products Allergy Unknown Verified 09/11/23 05:18 (Dairy) [Dairy] soy Allergy Anaphylaxis Verified 09/11/23 05:18 wheat Allergy Unknown Verified 09/11/23 05:18 amoxicillin AdvReac Nausea & Verified 09/11/23 05:18 Vomiting & Diarrhea ibuprofen AdvReac Nausea & Verified 09/11/23 05:18 Vomiting & Diarrhea Surgical - Exam Vital Signs Temp Pulse Resp BP Pulse Ox 97.8 F 117 H 20 104/63 96 09/11/23 05:14 09/11/23 05:14 09/11/23 05:14 09/11/23 05:14 09/11/23 05:14 Results - Labs 09/11/23 05:34 09/11/23 05:34 Abnormal Lab Results - Last 24 Hours (Table) 09/11/23 09/11/23 09/11/23 Range/Units 05:34 05:34 05:34 WBC 15.3 H (3.8-10.6) k/uL Neutrophils # 12.6 H (1.3-7.7) k/uL Monocytes # 1.4 H (0-1.0) k/uL Glucose 120 H (74-99) mg/dL Urine Protein 1+ H (Negative) Urine Ketones 2+ H (Negative) Ur Leukocyte Esterase Small H (Negative) Ur Squamous Epith Cells 5 H (0-4) /hpf Urine Mucus Few H (None) /hpf Diabetes panel 09/11/23 Range/Units 05:34 Sodium 139 (137-145) mmol/L Potassium 3.8 (3.5-5.1) mmol/L Chloride 103 (98-107) mmol/L Carbon Dioxide 24 (22-30) mmol/L BUN 9 (7-17) mg/dL Creatinine 0.73 (0.52-1.04) mg/dL Glucose 120 H (74-99) mg/dL Calcium 9.7 (8.4-10.2) mg/dL AST 23 (14-36) U/L ALT 16 (4-34) U/L Alkaline Phosphatase 100 (38-126) U/L Total Protein 7.6 (6.3-8.2) g/dL Albumin 4.3 (3.5-5.0) g/dL Calcium panel 09/11/23 Range/Units 05:34 Calcium 9.7 (8.4-10.2) mg/dL Albumin 4.3 (3.5-5.0) g/dL Pituitary panel 09/11/23 Range/Units 05:34 Sodium 139 (137-145) mmol/L Potassium 3.8 (3.5-5.1) mmol/L Chloride 103 (98-107) mmol/L Carbon Dioxide 24 (22-30) mmol/L BUN 9 (7-17) mg/dL Creatinine 0.73 (0.52-1.04) mg/dL Glucose 120 H (74-99) mg/dL Calcium 9.7 (8.4-10.2) mg/dL Adrenal panel 09/11/23 Range/Units 05:34 Sodium 139 (137-145) mmol/L Potassium 3.8 (3.5-5.1) mmol/L Chloride 103 (98-107) mmol/L Carbon Dioxide 24 (22-30) mmol/L BUN 9 (7-17) mg/dL Creatinine 0.73 (0.52-1.04) mg/dL Glucose 120 H (74-99) mg/dL Calcium 9.7 (8.4-10.2) mg/dL Total Bilirubin 1.2 (0.2-1.3) mg/dL AST 23 (14-36) U/L ALT 16 (4-34) U/L Alkaline Phosphatase 100 (38-126) U/L Total Protein 7.6 (6.3-8.2) g/dL Albumin 4.3 (3.5-5.0) g/dL
--- NOTE | 2023-09-11 13:07 | US ---
EXAMINATION TYPE: US gallbladder DATE OF EXAM: 09/11/2023 COMPARISON: Same day CT scan CLINICAL INDICATION: Female, 52 years old with history of Right upper quadrant pain, CBD stone; Galls tone f/u to ct scan. Limited du to bowel gas and body habitus TECHNIQUE: Multiple sonographic images of the right upper quadrant are obtained. FINDINGS: EXAM MEASUREMENTS: Liver Length: 11 cm Gallbladder Wall: 0.8 cm CBD: 0.8 cm Right Kidney: 9.0 x 4.2 x 3.6 cm TOBACCO FLAVORER NOTES: Pancreas: Obscured by bowel gas Liver: Increased attenuation Gallbladder: 2.5 cm stone seen. Gallbladder measures 9.7 cm with thickened lamellated appearing wall .8 cm. Evidence for sonographic Walker's sign: Yes CBD: Dilated 0.8 cm Right Kidney: No hydronephrosis or masses seen IMPRESSION: 1. Cholelithiasis, with positive sonographic Walker's sign, distended gallbladder with thickened [place] ellated appearing wall, highly concerning for acute cholecystitis. 2. Mildly prominent CBD. A more distal obstructive or partially obstructive process cannot be exclud ed.
[2023-09-11] MEDS: MORPHINE SULFATE 4 MG/ML SYRINGE IV PRN ×3 (14:55→21:29)
[2023-09-11] MEDS: KETOROLAC 15 MG/ML 1 ML VIAL IVP SCH ×2 (14:58→20:24)
[2023-09-11] MEDS: HEPARIN SODIUM,PORCINE 5,000 UNIT/ML 1 ML VIAL SQ SCH (14:59)
[2023-09-11] MEDS: MONTELUKAST 10 MG TAB PO SCH (20:21)
[2023-09-12] MEDS: HEPARIN SODIUM,PORCINE 5,000 UNIT/ML 1 ML VIAL SQ SCH ×3 (00:05→16:48)
[2023-09-12] MEDS: MORPHINE SULFATE 4 MG/ML SYRINGE IV PRN (00:06)
[2023-09-12] MEDS: metroNIDAZOLE-NS PMX 500 MG in SALINE 1 100ML.BAG IVPB SCH ×3 (00:08→16:49)
[2023-09-12] MEDS: ONDANSETRON 4 MG/2 ML VIAL IVP PRN (01:57)
[2023-09-12] MEDS: KETOROLAC 15 MG/ML 1 ML VIAL IVP SCH ×3 (03:08→16:49)
[2023-09-12] MEDS: LEVOTHYROXINE 50 MCG TAB PO SCH (05:58)
[2023-09-12] MEDS: PANTOPRAZOLE 40 MG/10 ML VIAL IVP SCH (08:15)
[2023-09-12 09:01] LABS: BUN/Creat Ratio 12.12 Ratio (12.00-20.00); Blood Urea Nitrogen 9.7 mg/dL (9.0-27.0); Calcium 8.7 mg/dL (8.7-10.3); Chloride 104 mmol/L (96-109); Glucose 92 mg/dL (70-110); Potassium 3.6 mmol/L (3.5-5.5); Sodium 141 mmol/L (135-145)
[2023-09-12 09:09] LABS: HCT 40.6 % (37.2-46.3); HGB 12.9 d/dL (12.0-15.0); MCH 29.4 pg (27.0-32.0); MCHC 31.8 d/dL (32.0-37.0); MCV 92.5 FL (80.0-97.0); Mean Platelet Volume 11.8 FL (9.5-12.2); NRBC Per 100 WBC 0 X 10*3/uL (0.00-0.01); Platelet Count 204 X 10*3/uL (140-440); RBC 4.39 X 10*6/uL (4.10-5.20); RDW 13.1 % (11.5-14.5); WBC 12.36 X 10*3/uL (4.50-10.00)
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
[2023-09-12 09:55] LABS: Basophils # (A) 0.04 X 10*3/uL (0.00-0.10); Basophils % (A) 0.3 %; Eosinophils % (A) 1.6 %; Lymphocytes # (A) 2.08 X 10*3/uL (0.90-5.00); Lymphocytes % (A) 16.8 %; Monocytes # (A) 1.61 X 10*3/uL (0.20-1.00); Neutrophils # (A) 8.39 X 10*3/uL (1.80-7.70); RBC Morphology Normal (Normal)
--- NOTE | 2023-09-12 14:33 | P.PN ---
Subjective Progress Note Date: 09/12/23 Hospital course: Patient is a very pleasant 52-year-old female with a past medical history of Gurwinder's thyroiditis with hypothyroidism, GERD, and multiple medication ALLERGIES. She presented to the emergency department with a chief complaint of abdominal pain and nausea. Patient reports diffuse upper abdominal pain beginning on Tuesday and progressively worsening. Patient reports initially she contributed with food ALLERGIES as she has multiple food ALLERGIES and sensitivities but states that this pain significantly worsened and radiated throughout her entire abdomen much worse than she had felt in the past. Patient reports in addition this has been accompanied by significant nausea, chills, and diaphoresis. She denies experiencing any episodes of vomiting but does report limited oral intake since Tuesday. She denies having any known fevers, chest pain, palpitations, shortness of breath, vomiting, hematemesis, or experiencing any changes in her urination or bowel function. She underwent full evaluation in the emergency department. Vital signs upon arrival show patient to have tachycardic heart rate in 117 bpm, blood pressure 104/63, respiratory rate 20, temp 97.8F, SpO2 96% on room air. EKG completed showing sinus tachycardia at 100 bpm with no significant T-wave or ST abnormalities showing no signs of acute ischemia upon personal review and interpretation. Labs completed and reviewed. CBC showing leukocytosis with WBC count of 15.3. BMP and liver profile were unremarkable. Lactic acid normal findings at 1.1. Amylase 45 and Lipase 59. Urinalysis was a contaminated specimen showing no signs concerning for infection. CT abdomen and pelvis was completed the radiology report stating cholelithiasis with abnormal appearance of the gallbladder strongly suggestive of acute cholecystitis. Patient was admitted under our are with consultation to general surgery. Physical exam: Vital signs reviewed and stable. General: Nontoxic, no distress and appears stated age. Derm: Skin warm and dry, normal coloration for ethnicity. Head: Atraumatic, normocephalic and symmetric. Eyes: EOMs intact, no lid lag, and anicteric sclera Mouth: no lip lesions, mucus membranes moist Cardiovascular: regular rate and rhythm with normal S1S2, no murmur, positive posterior tibial pulses bilaterally, and cap refill < 2 seconds. Lungs: Respirations even, regular, and unlabored on room air. Lungs CTA bilaterally, no rhonchi, no rales, no wheezing, and no accessory muscle usage. Abdominal: soft nondistended, patient continues to have discomfort/pain upon palpation to right upper quadrant and epigastric region. Ext: ROM intact. No gross muscle atrophy, no edema, no contractures Neuro: Speech clear, face symmetrical and CN II-XII grossly intact with no noted focal neuro deficits Psych: Alert and oriented to person, place, time, and situation. Appropriate and pleasant affect. Assessment and Plan of Care: Acute cholecystitis Intractable abdominal pain and nausea, secondary to above -Continue IV antibiotics with Flagyl 500 mg every 8 hours and Rocephin 1 g every 24 hours. -Symptomatic care and pain management with morphine 4 mg IVP every 3 hours as needed for severe pain and scheduled Toradol 14 mg every 6 hours. -NPO until evaluated by general surgery team and orders given to advance diet. -Continue IV fluid hydration 0.9% normal saline at 130 mL's per hour. Presurgical clearance -METS score > 4 -NSQIP surgical risks were completed. Patient is at a below average risk of serious complications, cardiac complications, and a below average risk of . -Patient is medically optimized for surgery at this time with no recommendations of further testing. Hypothyroidism Patient to continue daily medication regimen with Synthroid 50 g daily. GERD Hold omeprazole in place patient on Protonix 40 mg IVP daily. Data reviewed: Vital signs reviewed. Blood pressure 145/86, heart rate 68, respiratory rate 16, temp 98.4F, SpO2 of 95% on room air. -EKG completed showing sinus tachycardia at 100 bpm, low voltage but showing no significant T-wave or ST abnormalities showing no signs of acute ischemia upon personal review and interpretation. Labs completed and reviewed. CBC showing slight improvement of leukocytosis with WBC count decreasing from 15.3 down to 12.36. BMP was unremarkable with the exception of slightly elevated anion gap of 13. Gallbladder ultrasound completed showing cholelithiasis with positive sonographic Walker's sign, distended gallbladder with thickened lamellated appearing wall, highly concerning for acute cholecystitis. CODE STATUS: Full code DVT prophylaxis: heparin Discussed with: patient, patient's at bedside, and RN Anticipated discharge date: clinical course to determine Anticipated discharge place: home Patient was seen independently by Nurse Practitioner. This document was prepared using [employer] dictation software. Please allow for errors in tissue technologist while rare they do occur. Objective - Vital Signs Vital signs: Vital Signs Temp 98.4 F 09/12/23 07:55 Pulse 82 09/12/23 07:55 Resp 18 09/12/23 07:55 BP 103/70 09/12/23 07:55 Pulse Ox 95 09/12/23 07:55 FiO2 - Labs CBC & Chem 7: 09/12/23 06:04 09/12/23 06:04 Labs: Abnormal Lab Results - Last 24 Hours (Table) 09/11/23 09/12/23 Range/Units 05:34 06:04 Anion Gap 13.00 H (4.00-12.00) mmol/L Urine Protein 1+ H (Negative) Urine Ketones 2+ H (Negative) Ur Leukocyte Esterase Small H (Negative) Ur Squamous Epith Cells 5 H (0-4) /hpf Urine Mucus Few H (None) /hpf
--- NOTE | 2023-09-12 19:09 | CA ---
Transthoracic Echo Report Name: Savita Cox Age: 52 Gender: F : 1970 Exam Date: 09/12/2023 11:29 Exam Location: [facility] Ht (in): 63 Wt (lb): 190 Ordering Physician: Ingris Puentes MD Attending/Referring Phys: Deloris MEDRANO Principal Strategist Noemi Carranza RDCS Procedure CPT: Indications: Abnormal EKG, atypical chest pain Cardiac Hx: Technical Quality: Fair Contrast 1: Total Dose (mL): Contrast 2: Total Dose (mL): MEASUREMENTS (Male / Female) Normal Values 2D ECHO LV Diastolic Diameter PLAX 4.2 cm 4.2 - 5.9 / 3.9 - 5.3 cm LV Systolic Diameter PLAX 2.8 cm IVS Diastolic Thickness 1.1 cm 0.6 - 1.0 / 0.6 - 0.9 cm LVPW Diastolic Thickness 1.4 cm 0.6 - 1.0 / 0.6 - 0.9 cm LV Relative Wall Thickness 0.6 LA Volume 47.5 cm??? 18 - 58 / 22 - 52 cm??? LA Volume Index 23.8 cm???/m??? 16 - 28 cm???/m??? M-MODE Aortic Root Diameter MM 2.5 cm LA Systolic Diameter MM 3.3 cm LA Ao Ratio MM 1.3 AV Cusp Separation MM 2.1 cm DOPPLER AV Peak Velocity 115.3 cm/s AV Peak Gradient 5.3 mmHg AV Mean Velocity 79.6 cm/s AV Mean Gradient 3.0 mmHg AV Velocity Time Integral 20.0 cm LVOT Peak Velocity 103.4 cm/s LVOT Peak Gradient 4.3 mmHg LVOT Velocity Time Integral 22.0 cm MV Area PHT 5.3 cm??? Mitral E Point Velocity 87.2 cm/s Mitral A Point Velocity 104.7 cm/s Mitral E to A Ratio 0.8 MV Deceleration Time 143.7 ms MV E' Velocity 9.2 cm/s Mitral E to MV E' Ratio 9.5 TR Peak Velocity 239.6 cm/s TR Peak Gradient 23.0 mmHg Right Ventricular Systolic Press 27.3 mmHg FINDINGS Left Ventricle Mildly increased left ventricular wall thickness. Normal left ventricular systolic function with no obvious regional wall motion abnormalities. Left ventricular ejection fraction is estimated at 55-60 %. Right Ventricle Normal right ventricular size and function. Right ventricular systolic pressure within normal limits. Right Atrium Normal right atrial size. Left Atrium Normal left atrial size. Mitral Valve Structurally normal mitral valve. No mitral stenosis, or prolapse. Trace to mild mitral regurgitation. Aortic Valve Trileaflet aortic valve. No aortic valve stenosis or regurgitation. Tricuspid Valve Structurally normal tricuspid valve. Mild tricuspid regurgitation. Pulmonic Valve Structurally normal pulmonic valve.trace to mild pulmonic regurgitation. Pericardium No pericardial effusion. Aorta Normal size aortic root and proximal ascending aorta. CONCLUSIONS 1. Normal left ventricle size and systolic function 2. Mild tricuspid regurgitation with no evidence of pulmonary hypertension 3. Trace to mild mitral regurgitation Previewed by: Dr. Ivana Orsoco MD (Electronically Signed) Final Date: 12 September 2023 19:08
[2023-09-12] MEDS ORDERED: DEXAMETHASONE SOD PHOSPHATE 4 MG/ML 1 ML VIAL IVP ONE (20:31)
[2023-09-12] MEDS ORDERED: SCOPOLAMINE 1 MG/72 HR PATCH TRANSDERM ONE (20:34)
[2023-09-12] MEDS ORDERED: ONDANSETRON 4 MG/2 ML VIAL IVP ONE (20:35)
[2023-09-12] MEDS: LACTATED RINGERS 1,000 ML IV ONE (20:38)
[2023-09-12] MEDS ORDERED: LIDOCAINE 1% INJ 10MG/ML (20 ML MDV) ONE (20:54)
[2023-09-12] MEDS ORDERED: KETOROLAC 15 MG/ML 1 ML VIAL ONE (20:54)
[2023-09-12] MEDS ORDERED: ROCURONIUM 10 MG/ML (5 ML VIAL) IV ONE (20:54)
[2023-09-12] MEDS ORDERED: .MORPHINE SULFATE (INJ) 10 MG/ML SYRINGE ONE (20:54)
[2023-09-12] MEDS ORDERED: INDOCYANINE GREEN 25 MG VIAL IV ONE (20:54)
[2023-09-12] MEDS ORDERED: IV FLUID CONTINUATION 1,000 ML IV ONE (20:54)
[2023-09-12] MEDS ORDERED: MIDAZOLAM 2 MG/2 ML VIAL ONE (20:54)
[2023-09-12] MEDS ORDERED: ceFAZolin 1,000 MG VIAL ONE (20:54)
[2023-09-12] MEDS ORDERED: SUGAMMADEX SODIUM 200 MG/2 ML SDV IV ONE (20:54)
[2023-09-12] MEDS ORDERED: PROPOFOL 10 MG/ML 20 ML VIAL IV ONE (20:54)
[2023-09-12] MEDS ORDERED: fentaNYL (PF) 50 MCG/ML 2 ML AMP ONE (20:54)
[2023-09-12] MEDS ORDERED: HEPARIN SODIUM,PORCINE 5,000 UNIT/ML 1 ML VIAL ONE (20:54)
[2023-09-12] MEDS ORDERED: LIDOCAINE 0.5%-EPI 1:200,000 50 ML VIAL SQ ONE ×2 (21:28→21:32)
[2023-09-12] MEDS ORDERED: SODIUM CHLORIDE 0.9% 100 ML with ceFAZolin 2,000 MG IV ONE ×2 (21:32)
[2023-09-12] MEDS ORDERED: LACTATED RINGERS 1,000 ML IV ONE (22:21)
--- NOTE | 2023-09-12 23:52 | P.OP ---
Date of Procedure: 09/12/23 Description of Procedure: SURGEON: DOMINIC JUAN MD PREOPERATIVE DIAGNOSES: 1. Acute cholecystitis with sepsis 2. Symptomatic gallstones 3. Hypertensive heart disease 4. Abnormal EKG 5. Atypical chest pain 6. Hypothyroidism POSTOPERATIVE DIAGNOSES: 1. Acute hemorrhagic hydrops gangrenous cholecystitis with cystic duct obstruction due to gallstones 2. Symptomatic gallstones 3. Hypertensive heart disease 4. Abnormal EKG 5. Atypical chest pain 6. Hypothyroidism OPERATION: 1. Robotic-assisted da Jennifer Xi laparoscopic lysis of adhesions over 1 hour 2. Robotic-assisted da Jennifer Xi laparoscopic cholecystectomy, multiport with FIREFLY ESTIMATED BLOOD LOSS: 500 mL. SPECIMENS REMOVED: Gallbladder. COMPLICATIONS: None. OPERATIVE FINDINGS: 1. Acute hemorrhagic gangrenous cholecystitis with hydrops and distended gallbladder 2. Indocyanine green confirms acute cholecystitis with lack of contrast in gallbladder 3. Common bile duct within normal limits, without dilation INDICATIONS: The patient is a 52 year-old female who presents with epigastric right upper quadrant pain, symptomatic gallstones, WBC over 15,000, and clinical features of acute cholecystitis with presentation of sepsis. Antibiotic management including pain management was prescribed to manage her cholecystitis. Cardiac risk assessment was performed prior to surgery. Surgical intervention with cholecystectomy was described. Robotic assisted laparoscopic approach was described. Benefits and risks of the procedure including but not limited to bleeding, infection, injury to the biliary tree was reviewed. Informed consent was obtained. DESCRIPTION OF PROCEDURE: Patient was brought to the operating room, placed in supine position. After general induction, the abdomen had been prepped and draped in standard sterile fashion. The robotic da Jennifer XI system was primed. After a timeout protocol was performed, the patient had been prepped and draped in standard sterile fashion. The patient was injected with indocyanine green. A 5 mm 0 degrees laparoscopic trocar entry was performed along the left upper quadrant. The abdomen insufflated to 15 mmHg pressure which was tolerated well. Diagnostic laparoscopy demonstrated no injury to bowel viscera or mesentery. The liver surface was unremarkable. A moderately distended gallbladder was identified adding complexity to the case. Next, two 8 mm robotic ports were placed along the right upper abdomen. The camera 8-mm port was maintained along the epigastrium. Another 12 mm port was placed along the left upper abdominal wall after exchanging the 5 mm port. Please note that the ports were placed at least 10 to 15 cm away from the target anatomy of the gallbladder. The robot was docked along the left lateral abdomen. The patient was repositioned in reverse Trendelenburg position at 21 with the right side up 7. Using a grasper for arm 3, a grasper for arm 4, including hook cautery for arm 1, the robotic system was docked and primed as described. Instruments were interchanged by the enrichment assistant including hook cautery, Bovie cautery and clip appliers. Additional instruments including vessel sealer, robotic suction drill grinder, robotic stapler were made available. I had sat at the console. The gallbladder was encased in surrounding tissue including the proximal transverse colon, omentum adding complexity to the case and requiring extensive lysis of adhesions using blunt and sharp dissection using vessel sealer including hook artery for over one hour. The gallbladder was reflected towards the dome of the liver. The gallbladder was moderately distended adding complexity to the case. Edema was found along the cystic triangle including infundibulum. Initial dissection was performed on the gallbladder infundibulum using indocyanine green to illuminate the cystic duct and common bile duct. Due to moderate distention of the infundibulum, dome down technique was performed removing the gallbladder from the hepatic fossa starting from the fundus towards the infundibulum. Using a sponge, the liver was reflected towards the diaphragm and starting at the gallbladder fundus, hook cautery was used between the liver and the gallbladder. The patient pre-existing easy bleeding from her skin incisions and from the liver bed requiring hemostatic agents such as fibular. As the gallbladder was dissected from the hepatic fossa, hemostasis was checked using vessel sealer along the posterior gallbladder. Next, indocyanine green was used to confirm the common bile duct as well as cystic duct. The entire gallbladder was without contrast consistent with acute cholecystitis. The infundibulum was retracted laterally away from the common bile duct. FIREFLY was used to identify the common bile duct. Robotic 45 mm green staple loads were fired across the infundibulum as the cystic duct and cystic structures were moderately edematous. Additionally, gallstone was impacted along the neck of the gallbladder. Bleeding along the liver bed was controlled. The abdomen was irrigated with normal saline solution of 1 L. Indocyanine green was used to confirm no bile leak from the staple line. Sponges were removed from the abdomen. The robot was undocked. I re-scrubbed into the case. A 10 mm Endo Catch bag was used to remove the gallbladder in total via the left upper quadrant incision after widening the incision. The specimen was removed from the abdominal cavity. Joseph Brandt and 0 Vicryl was used to close the fascial defect of the left upper quadrant. No blood or bile was found at the staple line. All pneumoperitoneum instruments were evacuated from the abdominal cavity. The incisions were cleansed using dilute hydrogen peroxide. The incisions were reapproximated using 4-0 Monocryl in an interrupted subcuticular fashion. Please note along the trocar sites, local anesthetic was placed as a field block prior to insertion of all instruments. Liquid glue was applied to the skin. Optifoam was placed along the left upper quadrant. At the end of the procedure needle, sponge, and instrument count had been verified correct by the surgical scheduler. The patient was transferred to postanesthesia care unit in stable condition. Intraoperative films were shared with the patient's family.
[2023-09-13] MEDS: LACTATED RINGERS 1,000 ML IV ONE (00:59)
[2023-09-13] MEDS: ONDANSETRON 4 MG/2 ML VIAL IVP PRN (01:17)
[2023-09-13] MEDS: KETOROLAC 15 MG/ML 1 ML VIAL IVP SCH ×4 (01:17→15:04)
[2023-09-13] MEDS: HEPARIN SODIUM,PORCINE 5,000 UNIT/ML 1 ML VIAL SQ SCH ×4 (01:18→23:54)
[2023-09-13] MEDS: MONTELUKAST 10 MG TAB PO SCH ×2 (01:18→20:22)
[2023-09-13] MEDS: metroNIDAZOLE-NS PMX 500 MG in SALINE 1 100ML.BAG IVPB SCH ×4 (01:18→23:55)
[2023-09-13] MEDS: MORPHINE SULFATE 4 MG/ML SYRINGE IV PRN ×5 (03:07→23:55)
[2023-09-13] MEDS: LEVOTHYROXINE 50 MCG TAB PO SCH (06:20)
[2023-09-13 08:45] LABS: Basophils # (A) 0.01 X 10*3/uL (0.00-0.10); Basophils % (A) 0.1 %; Eosinophils # (A) 0 X 10*3/uL (0.04-0.35); Eosinophils % (A) 0 %; HCT 35.7 % (37.2-46.3); HGB 11.9 d/dL (12.0-15.0); Lymphocytes # (A) 0.44 X 10*3/uL (0.90-5.00); Lymphocytes % (A) 3.1 %; MCH 29.5 pg (27.0-32.0); MCHC 33.3 d/dL (32.0-37.0); MCV 88.4 FL (80.0-97.0); Mean Platelet Volume 11.6 FL (9.5-12.2); Monocytes # (A) 0.71 X 10*3/uL (0.20-1.00); NRBC Per 100 WBC 0 X 10*3/uL (0.00-0.01); Neutrophils # (A) 12.96 X 10*3/uL (1.80-7.70); Neutrophils % (A) 91.4 %; Platelet Count 254 X 10*3/uL (140-440); RBC 4.04 X 10*6/uL (4.10-5.20); RDW 12.9 % (11.5-14.5); WBC 14.17 X 10*3/uL (4.50-10.00)
[2023-09-13 09:30] LABS: ALT 21 U/L (8-44); AST 38 U/L (13-35); Albumin 3.3 d/dL (3.8-4.9); Alkaline Phosphatase 80 U/L (41-126); BUN/Creat Ratio 15.43 Ratio (12.00-20.00); Blood Urea Nitrogen 10.8 mg/dL (9.0-27.0); Calcium 8.3 mg/dL (8.7-10.3); Carbon Dioxide 22.4 mmol/L (21.6-31.8); Chloride 109 mmol/L (96-109); Globulin 2.2 d/dL (1.6-3.3); Glucose 175 mg/dL (70-110); Potassium 3.8 mmol/L (3.5-5.5); Sodium 141 mmol/L (135-145); Total Bilirubin 0.2 mg/dL (0.3-1.2); Total Protein 5.5 d/dL (6.2-8.2)
[2023-09-13] MEDS: ACETAMINOPHEN TAB 500 MG TAB PO SCH ×3 (09:44→20:21)
[2023-09-13] MEDS: PANTOPRAZOLE 40 MG/10 ML VIAL IVP SCH (09:48)
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
--- NOTE | 2023-09-13 14:12 | P.PN ---
Subjective Progress Note Date: 09/13/23 CHIEF COMPLAINT: Acute hemorrhagic hydrops gangrenous cholecystitis HISTORY OF PRESENT ILLNESS: Patient postop day #1 status post lysis of adhesions and robotic laparoscopic cholecystectomy. Patient does complain of left-sided abdominal pain. She is having a small amount of flatus. No bowel movement. She did have nausea earlier which has improved. No vomiting. She tolerated diet. Afebrile. WBC is up from 12.36-14.7 Hgb 11.9 platelets 254 total bilirubin 0.2 AST mildly elevated at 38 ALT 21 alk phos 80 PHYSICAL EXAM: VITAL SIGNS: Reviewed GENERAL: Well-developed in no acute distress. HEENT: No sclera icterus. Extraocular movements grossly intact. Moist buccal mucosa. Head is atraumatic, normocephalic. Hears conversational speech. No nasal drainage. NECK: Supple without lymphadenopathy. CHEST: Non-labored respirations and equal bilateral excursions. CARDIOVASCULAR: Palpable 2+ radial pulses. ABDOMEN: Soft. Nondistended. Tenderness palpation on left abdomen. Incision sites clean dry and intact. MUSCULOSKELETAL: No clubbing or cyanosis. NEUROLOGIC: No focal or lateralizing signs. Cranial nerves II through XII grossly intact. PSYCH: Appropriate affect. Alert and oriented to person, place and time. SKIN: Well perfused. Good skin turgor. ASSESSMENT: 1. Acute hemorrhagic hydrops gangrenous cholecystitis with cystic duct obstruction due to gallstones 2. Symptomatic gallstones 3. Hypertensive heart disease 4. Abnormal EKG 5. Atypical chest pain 6. Hypothyroidism PLAN: -Continue low fat diet -Repeat labs in a.m. -Continue antibiotics -Encourage patient to ambulate -Added po Tylenol scheduled for pain management -Encourage patient to use incentive spirometer -DVT prophylaxis subcu heparin Physician Band Lining Bander note has been reviewed by physician. Signing provider agrees with the documented findings, assessment, and plan of care. Objective - Vital Signs Vital signs: Vital Signs Temp 98.5 F 09/13/23 07:53 Pulse 79 09/13/23 07:53 Resp 16 09/13/23 07:53 BP 142/84 09/13/23 07:53 Pulse Ox 91 L 09/13/23 07:53 FiO2 Intake & Output 09/12/23 09/13/23 09/13/23 18:59 06:59 18:59 Intake Total 1900 Output Total 50 Balance 1850 Weight 86.183 kg Intake: IV 1900 Output: Estimated Blood Loss 50 Other: Voiding Method Toilet Toilet # Voids 4 - Labs CBC & Chem 7: 09/13/23 06:02 09/13/23 06:02 Labs: Abnormal Lab Results - Last 24 Hours (Table) 09/13/23 09/13/23 Range/Units 06:02 06:02 WBC 14.17 H (4.50-10.00) X 10*3/uL RBC 4.04 L (4.10-5.20) X 10*6/uL Hgb 11.9 L (12.0-15.0) d/dL Hct 35.7 L (37.2-46.3) % Neutrophils # 12.96 H (1.80-7.70) X 10*3/uL Lymphocytes # 0.44 L (0.90-5.00) X 10*3/uL Eosinophils # 0 L (0.04-0.35) X 10*3/uL Glucose 175 H (70-110) mg/dL Calcium 8.3 L (8.7-10.3) mg/dL Total Bilirubin 0.2 L (0.3-1.2) mg/dL AST 38 H (13-35) U/L Total Protein 5.5 L (6.2-8.2) d/dL Albumin 3.3 L (3.8-4.9) d/dL Albumin/Globulin Ratio 1.50 L (1.60-3.17) Ratio Microbiology - Last 24 Hours (Table) 09/11/23 09:45 Blood Culture - Preliminary Blood 09/11/23 09:30 Blood Culture - Preliminary Blood
--- NOTE | 2023-09-13 14:16 | P.PN ---
Subjective Progress Note Date: 09/13/23 Hospital course: Patient is a very pleasant 52-year-old female with a past medical history of Gurwinder's thyroiditis with hypothyroidism, GERD, and multiple medication ALLERGIES. She presented to the emergency department with a chief complaint of abdominal pain and nausea. Patient reports diffuse upper abdominal pain beginning on Tuesday and progressively worsening. Patient reports initially she contributed with food ALLERGIES as she has multiple food ALLERGIES and sensitivities but states that this pain significantly worsened and radiated throughout her entire abdomen much worse than she had felt in the past. Patient reports in addition this has been accompanied by significant nausea, chills, and diaphoresis. She denies experiencing any episodes of vomiting but does report limited oral intake since Tuesday. She denies having any known fevers, chest pain, palpitations, shortness of breath, vomiting, hematemesis, or experiencing any changes in her urination or bowel function. She underwent full evaluation in the emergency department. Vital signs upon arrival show patient to have tachycardic heart rate in 117 bpm, blood pressure 104/63, respiratory rate 20, temp 97.8F, SpO2 96% on room air. EKG completed showing sinus tachycardia at 100 bpm with no significant T-wave or ST abnormalities showing no signs of acute ischemia upon personal review and interpretation. Labs completed and reviewed. CBC showing leukocytosis with WBC count of 15.3. BMP and liver profile were unremarkable. Lactic acid normal findings at 1.1. Amylase 45 and Lipase 59. Urinalysis was a contaminated specimen showing no signs concerning for infection. CT abdomen and pelvis was completed the radiology report stating cholelithiasis with abnormal appearance of the gallbladder strongly suggestive of acute cholecystitis. Patient was admitted under our are with consultation to general surgery. Physical exam: Gen: awake, alert HEENT: normocephalic, atraumatic, good hearing acuity, moist mucous membranes Resp: good air exchange, breathing comfortably with no accessory muscle use CVS: good distal perfusion x 4, GI: soft, NTTP, ND : no SPT, no CVAT, hoskins catheter not present MSK: no pitting edema, no clubbing Neuro: non-focal, moving all extremities Psych: cooperative, euthymic mood Assessment and Plan of Care: Acute cholecystitis Intractable abdominal pain and nausea, secondary to above -Continue IV antibiotics with Flagyl 500 mg every 8 hours and Rocephin 1 g every 24 hours. -Symptomatic care and pain management with morphine 4 mg IVP every 3 hours as needed for severe pain and scheduled Toradol 14 mg every 6 hours. -Continue IV fluid hydration 0.9% normal saline at 130 mL's per hour. Presurgical clearance -METS score > 4 -NSQIP surgical risks were completed. Patient is at a below average risk of serious complications, cardiac complications, and a below average risk of . -Patient is medically optimized for surgery at this time with no recommendations of further testing. Hypothyroidism Patient to continue daily medication regimen with Synthroid 50 g daily. GERD Hold omeprazole in place patient on Protonix 40 mg IVP daily. CODE STATUS: Full code DVT prophylaxis: heparin Discussed with: patient, patient's at bedside, and RN Anticipated discharge date: clinical course to determine Anticipated discharge place: home This document was prepared using [email or web address] dictation software. Please allow for errors in refrigeration brazer/solderer while rare they do occur. Objective - Vital Signs Vital signs: Vital Signs Temp 98.5 F 09/13/23 07:53 Pulse 79 09/13/23 07:53 Resp 16 09/13/23 07:53 BP 142/84 09/13/23 07:53 Pulse Ox 91 L 09/13/23 07:53 FiO2 Intake & Output 09/12/23 09/13/23 09/13/23 18:59 06:59 18:59 Intake Total 1900 Output Total 50 Balance 1850 Weight 86.183 kg Intake: IV 1900 Output: Estimated Blood Loss 50 Other: Voiding Method Toilet Toilet # Voids 4 - Labs CBC & Chem 7: 09/13/23 06:02 09/13/23 06:02 Labs: Abnormal Lab Results - Last 24 Hours (Table) 09/13/23 09/13/23 Range/Units 06:02 06:02 WBC 14.17 H (4.50-10.00) X 10*3/uL RBC 4.04 L (4.10-5.20) X 10*6/uL Hgb 11.9 L (12.0-15.0) d/dL Hct 35.7 L (37.2-46.3) % Neutrophils # 12.96 H (1.80-7.70) X 10*3/uL Lymphocytes # 0.44 L (0.90-5.00) X 10*3/uL Eosinophils # 0 L (0.04-0.35) X 10*3/uL Glucose 175 H (70-110) mg/dL Calcium 8.3 L (8.7-10.3) mg/dL Total Bilirubin 0.2 L (0.3-1.2) mg/dL AST 38 H (13-35) U/L Total Protein 5.5 L (6.2-8.2) d/dL Albumin 3.3 L (3.8-4.9) d/dL Albumin/Globulin Ratio 1.50 L (1.60-3.17) Ratio Microbiology - Last 24 Hours (Table) 09/11/23 09:45 Blood Culture - Preliminary Blood 09/11/23 09:30 Blood Culture - Preliminary Blood
[2023-09-14] MEDS: ACETAMINOPHEN TAB 500 MG TAB PO SCH ×2 (03:44→09:34)
[2023-09-14 06:47] LABS: Basophils % (A) 0 %; Eosinophils # (A) 0.1 k/uL (0-0.7); Eosinophils % (A) 1 %; HCT 35.8 % (34.0-46.0); Lymphocytes # (A) 1.3 k/uL (1.0-4.8); Lymphocytes % (A) 11 %; MCH 30.2 pg (25.0-35.0); MCHC 33.1 g/dL (31.0-37.0); MCV 91.3 fL (80.0-100.0); Mean Platelet Volume 9.3; Monocytes # (A) 0.5 k/uL (0-1.0); Monocytes % (A) 4 %; Neutrophils # (A) 9.2 k/uL (1.3-7.7); Neutrophils % (A) 83 %; Platelet Count 216 k/uL (150-450); RBC 3.92 m/uL (3.80-5.40); RDW 12.9 % (11.5-15.5); WBC 11.1 k/uL (3.8-10.6)
[2023-09-14] MEDS: LEVOTHYROXINE 50 MCG TAB PO SCH (06:51)
[2023-09-14 06:54] LABS: ALT 20 U/L (4-34); AST 29 U/L (14-36); African American GFR (CKD) >90 (>60 ml/min/1.73 sqM); Albumin 2.9 g/dL (3.5-5.0); Albumin/Globulin Ratio 1.1; Alkaline Phosphatase 71 U/L (38-126); Anion Gap 8 mmol/L; Blood Urea Nitrogen 14 mg/dL (7-17); Calcium 8.2 mg/dL (8.4-10.2); Carbon Dioxide 26 mmol/L (22-30); Chloride 105 mmol/L (98-107); Globulin 2.6 g/dL; Glucose 95 mg/dL (74-99); Magnesium 1.9 mg/dL (1.6-2.3); Non-African American GFR(CKD) >90 (>60 ml/min/1.73 sqM); Potassium 3.5 mmol/L (3.5-5.1); Sodium 139 mmol/L (137-145); Total Bilirubin 0.5 mg/dL (0.2-1.3); Total Protein 5.5 g/dL (6.3-8.2)
[2023-09-14 07:26] LABS: HGB 11.9 gm/dL (11.4-16.0)
[2023-09-14 07:55] VITALS: BP 127/78; PULSE 94; RESP 15; TEMP 98.7
[2023-09-14] MEDS: HEPARIN SODIUM,PORCINE 5,000 UNIT/ML 1 ML VIAL SQ SCH (09:30)
[2023-09-14] MEDS: metroNIDAZOLE-NS PMX 500 MG in SALINE 1 100ML.BAG IVPB SCH (09:34)
[2023-09-14] MEDS: PANTOPRAZOLE 40 MG/10 ML VIAL IVP SCH (09:35)
--- NOTE | 2023-09-14 12:41 | P.PN ---
Subjective Progress Note Date: 09/14/23 CHIEF COMPLAINT: Acute hemorrhagic hydrops gangrenous cholecystitis HISTORY OF PRESENT ILLNESS: Patient postop day #2 status post lysis of adhesions and robotic laparoscopic cholecystectomy. Patient reports her abdominal pain has improved greatly and is controlled. She denies any nausea or vomiting. She is having flatus. She has been up and ambulating. She is tolerating diet. Patient is afebrile. WBC has trended down from 14-11.1 total bilirubin normal at 0.5 AST is down from 38-29 ALT 20 alk phos 71 PHYSICAL EXAM: VITAL SIGNS: Reviewed GENERAL: Well-developed in no acute distress. HEENT: No sclera icterus. Extraocular movements grossly intact. Moist buccal mucosa. Head is atraumatic, normocephalic. Hears conversational speech. No nasal drainage. NECK: Supple without lymphadenopathy. CHEST: Non-labored respirations and equal bilateral excursions. CARDIOVASCULAR: Palpable 2+ radial pulses. ABDOMEN: Soft. Nondistended. Incision sites clean dry and intact. MUSCULOSKELETAL: No clubbing or cyanosis. NEUROLOGIC: No focal or lateralizing signs. Cranial nerves II through XII grossly intact. PSYCH: Appropriate affect. Alert and oriented to person, place and time. SKIN: Well perfused. Good skin turgor. ASSESSMENT: 1. Acute hemorrhagic hydrops gangrenous cholecystitis with cystic duct obstruction due to gallstones 2. Symptomatic gallstones 3. Hypertensive heart disease 4. Abnormal EKG 5. Atypical chest pain 6. Hypothyroidism PLAN: -Patient can be discharged from surgical standpoint -Patient to continue oral antibiotics at discharge -Continue low fat diet -Continue to wear abdominal binder for comfort Physician Permit Review Assistant note has been reviewed by physician. Signing provider agrees with the documented findings, assessment, and plan of care. Objective - Vital Signs Vital signs: Vital Signs Temp 98.7 F 09/14/23 07:43 Pulse 94 09/14/23 07:43 Resp 15 09/14/23 07:43 BP 127/78 09/14/23 07:43 Pulse Ox 92 L 09/14/23 07:43 FiO2 Intake & Output 09/13/23 09/14/23 09/14/23 18:59 06:59 18:59 Intake Total 118 Output Total 2 Balance 116 Intake: Oral 118 Output: Urine 2 Other: Voiding Method Toilet Toilet # Voids 1 - Labs CBC & Chem 7: 09/14/23 06:03 09/14/23 06:03 Labs: Abnormal Lab Results - Last 24 Hours (Table) 09/14/23 09/14/23 Range/Units 06:03 06:03 WBC 11.1 H (3.8-10.6) k/uL Neutrophils # 9.2 H (1.3-7.7) k/uL Calcium 8.2 L (8.4-10.2) mg/dL Total Protein 5.5 L (6.3-8.2) g/dL Albumin 2.9 L (3.5-5.0) g/dL Microbiology - Last 24 Hours (Table) 09/11/23 09:45 Blood Culture - Preliminary Blood 09/11/23 09:30 Blood Culture - Preliminary Blood
--- NOTE | 2023-09-14 12:48 | P.DS ---
Providers Date of admission: 09/12/23 23:52 Expected date of discharge: 09/14/23 Attending physician: Roma Gallo DO Consults: 09/11/23 08:41 Consult Physician Routine Consulting Provider: Ingris Puentes Consult Reason/Comments: cholecystitis Do you want consulting provider notified?: Already Contacted 09/11/23 11:02 Consult Physician Urgent Consulting Provider: Jarad Hartmann Consult Reason/Comments: Cardiac clearance, abnormal EKG Do you want consulting provider notified?: Yes Primary care physician: Laith Grigsby [facility] Course: Acute cholecystitis Intractable abdominal pain and nausea, secondary to above Presurgical clearance Hypothyroidism GERD Hospital course: Patient is a very pleasant 52-year-old female with a past medical history of Gurwinder's thyroiditis with hypothyroidism, GERD, and multiple medication ALLERGIES. She presented to the emergency department with a chief complaint of abdominal pain and nausea. Patient reports diffuse upper abdominal pain beginning on Tuesday and progressively worsening. Patient reports initially she contributed with food ALLERGIES as she has multiple food ALLERGIES and sensitivities but states that this pain significantly worsened and radiated throughout her entire abdomen much worse than she had felt in the past. Patient reports in addition this has been accompanied by significant nausea, chills, and diaphoresis. She denies experiencing any episodes of vomiting but does report limited oral intake since Tuesday. She denies having any known fevers, chest pain, palpitations, shortness of breath, vomiting, hematemesis, or experiencing any changes in her urination or bowel function. She underwent full evaluation in the emergency department. Vital signs upon arrival show patient to have tachycardic heart rate in 117 bpm, blood pressure 104/63, respiratory rate 20, temp 97.8F, SpO2 96% on room air. EKG completed showing sinus tachycardia at 100 bpm with no significant T-wave or ST abnormalities showing no signs of acute ischemia upon personal review and interpretation. Labs completed and reviewed. CBC showing leukocytosis with WBC count of 15.3. BMP and liver profile were unremarkable. Lactic acid normal findings at 1.1. Amylase 45 and Lipase 59. Urinalysis was a contaminated specimen showing no signs concerning for infection. CT abdomen and pelvis was completed the radiology report stating cholelithiasis with abnormal appearance of the gallbladder strongly suggestive of acute cholecystitis. Patient was admitted under our are with consultation to general surgery. Pt underwent lap sergio and had gangrenous gallbladder removed. Recovered well post-procedure and was cleared for d/c with abx and f/u with general surgery. I spent 32 minutes coordinating this discharge on 09/14 Physical exam: Gen: awake, alert HEENT: normocephalic, atraumatic, good hearing acuity, moist mucous membranes Resp: good air exchange, breathing comfortably with no accessory muscle use CVS: good distal perfusion x 4, GI: soft, NTTP, ND : no SPT, no CVAT, hoskins catheter not present MSK: no pitting edema, no clubbing Neuro: non-focal, moving all extremities Psych: cooperative, euthymic mood Patient Condition at Discharge: Good Plan - Discharge Summary Discharge Rx Participant: Yes New Discharge Prescriptions: New cefUROXime axetiL [Ceftin] 500 mg PO BID 7 Days #14 tab Acetaminophen Tab [Tylenol] 1,000 mg PO Q6HR PRN #30 tablet PRN Reason: Pain metroNIDAZOLE [Flagyl] 500 mg PO TID 7 Days #21 tab Continue Levothyroxine Sodium [Synthroid] 50 mcg PO DAILY EPINEPHrine (Auto Inject) [Epipen] 0.3 mg IM ONCE PRN PRN Reason: Anaphylaxis Cetirizine HCl [Zyrtec] 10 mg PO DAILY Omeprazole [PriLOSEC] 40 mg PO AC-SUPPER Olopatadine HCl [Pataday] 1 drop BOTH EYES BID PRN PRN Reason: Allergy Symptoms Ergocalciferol (Vitamin D2) [Drisdol (50,000 Iu)] 1,250 mcg PO MO Azelastine/Fluticasone [Azelastin-Flutic 137-50Mcg Spr] 1 spray EA NOSTRIL BID PRN PRN Reason: Allergy Symptoms Albuterol Inhaler [Ventolin Hfa Inhaler] 1 - 2 puff INHALATION RT-Q6H PRN PRN Reason: Shortness Of Breath Discharge Medication List Cetirizine HCl [Zyrtec] 10 mg PO DAILY 10/26/17 [History] EPINEPHrine (Auto Inject) [Epipen] 0.3 mg IM ONCE PRN 10/26/17 [History] Levothyroxine Sodium [Synthroid] 50 mcg PO DAILY 10/26/17 [History] Omeprazole [PriLOSEC] 40 mg PO AC-SUPPER 08/25/22 [History] Albuterol Inhaler [Ventolin Hfa Inhaler] 1 - 2 puff INHALATION RT-Q6H PRN 09/11/23 [History] Azelastine/Fluticasone [Azelastin-Flutic 137-50Mcg Spr] 1 spray EA NOSTRIL BID PRN 09/11/23 [History] Ergocalciferol (Vitamin D2) [Drisdol (50,000 Iu)] 1,250 mcg PO MO 09/11/23 [History] Olopatadine HCl [Pataday] 1 drop BOTH EYES BID PRN 09/11/23 [History] Acetaminophen Tab [Tylenol] 1,000 mg PO Q6HR PRN #30 tablet 09/14/23 [Rx] cefUROXime axetiL [Ceftin] 500 mg PO BID 7 Days #14 tab 09/14/23 [Rx] metroNIDAZOLE [Flagyl] 500 mg PO TID 7 Days #21 tab 09/14/23 [Rx] Follow up Appointment(s)/Referral(s): Ivana Orosco MD [STAFF PHYSICIAN] - 3 Weeks (please call to schedule follow up tell them you were discharged from [facility] 09/14) Laith Caraballo MD [Primary Care Provider] - 1-2 days (please call to schedule follow up tell them you were discharged from [facility] 09/14) Ingris Puentes MD [STAFF PHYSICIAN] - 09/20/23 (please call to schedule follow up tell them you were discharged from [facility] 09/14) Patient Instructions/Handouts: *Surgery [facility] - Laparoscopic Cholecystectomy Discharge Instructions, Laparoscopic Cholecystectomy (DC) Activity/Diet/Wound Care/Special Instructions: Wear abdominal binder at all times for comfort. No lifting over 4 pounds in 4 weeks You May shower. No bath tub soaks for two weeks Use Tylenol scheduled for the next 24-48 hours for best pain relief. Use ice along incisions for the today to prevent swelling. Discharge Disposition: HOME SELF-CARE
== END 2023-09-14 12:59 | disposition home or self-care (01) | DRG 854 ==
LOC: EC 05:06 → 4SSUR 08:41 → INTOOBSV 08:41 → OBSVTOIN 08:41 → 4SSUR 21:09 → INTOOBSV 09-12 23:52 → OBSVTOIN 09-12 23:52 → UNDODISIN 09-14 12:59
PROVIDERS: ADMIT Internal Medicine; ATTEND Internal Medicine
PROC: 0DNU3ZZ Release Omentum, Percutaneous Approach (ICD-10-PCS; 2023-09-12)
PROC: 8E0W4CZ Robotic Assisted Procedure of Trunk Region, Percutaneous Endoscopic Approach (ICD-10-PCS; 2023-09-12)
PROC: BF53200 Other Imaging of Gallbladder and Bile Ducts using Fluorescing Agent, Indocyanine Green Dye, Intraoperative (ICD-10-PCS; 2023-09-12)
PROC: 0FT44ZZ Resection of Gallbladder, Percutaneous Endoscopic Approach (ICD-10-PCS; principal; 2023-09-12 11:10)
DX: A41.9 Sepsis, unspecified organism (principal); K80.01 Calculus of gallbladder with acute cholecystitis with obstruction; K82.1 Hydrops of gallbladder; K90.41 Non-celiac gluten sensitivity; K66.0 Peritoneal adhesions (postprocedural) (postinfection); K82.A1 Gangrene of gallbladder in cholecystitis; R94.31 Abnormal electrocardiogram [ECG] [EKG]; D64.9 Anemia, unspecified; K21.9 Gastro-esophageal reflux disease without esophagitis; R00.0 Tachycardia, unspecified; I08.1 Rheumatic disorders of both mitral and tricuspid valves; I10 Essential (primary) hypertension; R78.9 Finding of unspecified substance, not normally found in blood; E03.9 Hypothyroidism, unspecified; Z79.890 Hormone replacement therapy; Z88.0 Allergy status to penicillin; Z90.710 Acquired absence of both cervix and uterus; Z79.899 Other long term (current) drug therapy; Z88.8 Allergy status to other drugs, medicaments and biological substances; Z88.1 Allergy status to other antibiotic agents; Z91.011 Allergy to milk products; Z91.018 Allergy to other foods
CPT/HCPCS: 36415; 74176; 76705; 80048; 80053; 81001; 81025; 82150; 83605; 83690; 83735; 85025; 87040; 88304; 93005; 93306; 96361; 96365; 96366; 96367; 96372; 96375; 96376; 99285

== ENCOUNTER → 2023-10-05 | Outpatient (CLI) | payer BC ==
--- NOTE | 2023-10-07 11:32 | CT ---
EXAMINATION TYPE: CT abdomen pelvis wo con CT DLP: 798.3 mGycm, Automated exposure control for dose reduction was used. DATE OF EXAM: 10/05/2023 5:30 PM COMPARISON: 09/11/2023. CLINICAL INDICATION:Female, 52 years old with history of R10.9 abd pain; Left side/flank pain x 3 wee ks. Cystectomy Cholecystectomyx 3 weeks ago. TECHNIQUE: Axial CT of the ;CT abdomen pelvis wo con;Sagittal and coronal reformats were created on a separate workstation. Contrast used: (none if empty) Oral contrast used: without Oral Contrast (none if empty) FINDINGS: LOWER CHEST: 3 mm left lower lobe pulmonary nodule. ABDOMEN LIVER: Unremarkable GALLBLADDER AND BILE DUCTS: Gallbladder surgically absent. PANCREAS: Unremarkable. SPLEEN: Unremarkable. ADRENAL GLANDS: Unremarkable. KIDNEYS AND URETERS: No evidence of hydronephrosis or renal calculus. The ureters are unremarkable. PELVIS BLADDER: Unremarkable REPRODUCTIVE: The uterus is surgically absent. ABDOMEN & PELVIS STOMACH AND BOWEL: No evidence of bowel obstruction. Few scattered colonic diverticula. No evidence f or inflammation. Submucosal fat deposition within the cecum. The appendix appears normal. PERITONEUM/RETROPERITONEUM: No evidence of pneumoperitoneum or free fluid. VASCULATURE: No evidence of aortic aneurysm. MUSCULOSKELETAL: No acute osseous abnormalities LYMPH NODES: No gross evidence for lymphadenopathy. SOFT TISSUE/ABDOMINAL WALL: Postsurgical changes anterior abdominal wall. IMPRESSION: 1. No evidence for left sided process to explain the patient's pain no obstructive uropathy or renal calculus. No evidence for diverticulitis. 2. Post cholecystectomy changes with post surgical changes anterior abdominal wall. No evidence for organizing fluid collection.
== END | disposition home or self-care (01) ==
LOC: RADCTMAIN 17:14
PROVIDERS: ATTEND Family Medicine
DX: R10.9 Unspecified abdominal pain (principal); Z90.49 Acquired absence of other specified parts of digestive tract
CPT/HCPCS: 74176

== ENCOUNTER → 2023-11-21 | Outpatient (CLI) | payer BC ==
--- NOTE | 2023-11-21 17:39 | MM ---
Reason for Exam: Screening (asymptomatic). Baseline mammogram. Patient History: First Full-Term at age 24. Hysterectomy at age 34. Last menstrual period: Risk Values: Sara 5 year model risk: 0.9%. NCI Lifetime model risk: 7.1%. Prior Study Comparison: Patient's first Mammogram. Tissue Density: There are scattered fibroglandular densities. Findings: Analyzed By CAD. Bilateral circumscribed nodularity in an overall benign pattern. Most of the nodularity is present on the right and is isodense to low density. Otherwise, no discrete abnormality seen. Overall Assessment: Incomplete: need additional imaging evaluation, BI-RAD 0 Management: Diagnostic Breast Ultrasound of both breasts. . [facility] will attempt to contact patient to return for supplemental views and ultrasound if indicated. Patient should. Electronically signed and approved by: Gale Mendoza M.D. Radiologist
== END | disposition home or self-care (01) ==
LOC: RADMAMWWP 11:26
PROVIDERS: ATTEND Family Medicine
DX: Z12.31 Encounter for screening mammogram for malignant neoplasm of breast (principal)
CPT/HCPCS: 77063; 77067

== ENCOUNTER → 2023-11-25 | Outpatient (CLI) | payer BC ==
--- NOTE | 2023-11-25 14:59 | USB ---
Reason for Exam: Additional evaluation requested from abnormal screening. Patient History: First Full-Term at age 24. Hysterectomy at age 34. Risk Values: Sara 5 year model risk: 0.9%. NCI Lifetime model risk: 7.1%. Technique: Method: Targeted. Prior Study Comparison: 11/21/2023 Bilateral MG 3D screening mammo w/cad, [facility]. Findings: The whole breast of the right breast, the lower section of the breast of the left breast, the axilla of both breasts and the retroareolar of both breasts were scanned. No discrete solid or cystic areas are evident within the visualized left breast. No ultrasound abnormality corresponding to sonographic finding. Within the right breast axillary region 11:00 position 13 cm from the nipple is a 0.5 x 0.3 hypoechoic area which has some vascularity. This may be a small lymph node appears to correlate with the mammographic finding. There is a small hypoechoic area with good through transmission measuring 0.7 x 0.6 x 0.2 cm may be a small cyst 4:00 position 5 cm nipple. This potentially correlate with the mammographic finding. No additional ultrasound abnormalities to correlate with mammographic findings. Overall Assessment: Probably benign, BI-RAD 3 Management: Diagnostic Mammogram of both breasts in 6 months. Diagnostic Breast Ultrasound of the right breast in 6 months. A clinical breast exam by your physician is recommended on an annual basis and results should be correlated with mammographic findings. This exam should not preclude additional follow-up of suspicious palpable abnormalities. Results were given to the patient verbally at the time of exam. Electronically signed and approved by: Faraz Batista D.O. Radiologis
== END | disposition home or self-care (01) ==
LOC: RADUSWWP 13:52
PROVIDERS: ATTEND Family Medicine
DX: R92.8 Other abnormal and inconclusive findings on diagnostic imaging of breast (principal)

== ENCOUNTER 2024-02-24 22:24 | Inpatient (IN) | payer BC ==
[2024-02-24 23:11] LABS: ALT 25 U/L (4-34); AST 26 U/L (14-36); African American GFR (CKD) >90 (>60 ml/min/1.73 sqM); Albumin 2.9 g/dL (3.5-5.0); Alkaline Phosphatase 82 U/L (38-126); Anion Gap 8 mmol/L; Blood Urea Nitrogen 9 mg/dL (7-17); Calcium 7.8 mg/dL (8.4-10.2); Carbon Dioxide 21 mmol/L (22-30); Chloride 108 mmol/L (98-107); Glucose 108 mg/dL (74-99); Non-African American GFR(CKD) >90 (>60 ml/min/1.73 sqM); Potassium 3.6 mmol/L (3.5-5.1); Sodium 137 mmol/L (137-145); Total Bilirubin 1.3 mg/dL (0.2-1.3); Total Protein 5.5 g/dL (6.3-8.2)
[2024-02-24] MEDS ORDERED: NALOXONE 0.4 MG/ML 1 ML VIAL IV PRN (23:15)
--- NOTE | 2024-02-24 23:21 | ED ---
General Adult HPI - General Chief complaint: Abdominal Pain Stated complaint: abd pain Time Seen by Provider: 02/24/24 22:32 Source: patient, EMS, RN notes reviewed, old records reviewed Mode of arrival: EMS Limitations: no limitations - History of Present Illness Initial comments: 53-year-old female presenting as transfer from outside hospital with int raperitoneal free air and suspected ruptured diverticulitis. Patient had presented with several days of lower abdominal pain. Patient was noted to have an elevated white blood cell count at 24.5. Normal lactic acid. She was afebrile. She had CT which showed a moderate amount of intraperitoneal free air and suspected ruptured diverticulitis. She was initially given ceftriaxone followed by Unasyn and Flagyl. She was transferred for surgical evaluation. - Related Data Home Medications Medication Instructions Recorded Confirmed Cetirizine HCl [Zyrtec] 10 mg PO DAILY 10/26/17 09/11/23 EPINEPHrine (Auto Inject) [Epipen] 0.3 mg IM ONCE PRN 10/26/17 09/11/23 Levothyroxine Sodium [Synthroid] 50 mcg PO DAILY 10/26/17 09/11/23 Omeprazole [PriLOSEC] 40 mg PO AC-SUPPER 08/25/22 09/11/23 Albuterol Inhaler [Ventolin Hfa 1 - 2 puff INHALATION RT-Q6H PRN 09/11/23 09/11/23 Inhaler] Azelastine/Fluticasone 1 spray EA NOSTRIL BID PRN 09/11/23 09/11/23 [Azelastin-Flutic 137-50Mcg Spr] Ergocalciferol (Vitamin D2) 1,250 mcg PO MO 09/11/23 09/11/23 [Drisdol (50,000 Iu)] Olopatadine HCl [Pataday] 1 drop BOTH EYES BID PRN 09/11/23 09/11/23 Previous Rx's Medication Instructions Recorded Acetaminophen Tab [Tylenol] 1,000 mg PO Q6HR PRN #30 tablet 09/14/23 cefUROXime axetiL [Ceftin] 500 mg PO BID 7 Days #14 tab 09/14/23 metroNIDAZOLE [Flagyl] 500 mg PO TID 7 Days #21 tab 09/14/23 Allergies Allergy/AdvReac Type Severity Reaction Status Date / Time gluten Allergy Unknown Verified 09/11/23 12:20 hydromorphone [From Dilaudid] Allergy Rash/Hives Verified 09/11/23 12:20 meperidine [From Demerol] Allergy Rash/Hives Verified 09/11/23 12:20 Milk Containing Products Allergy Unknown Verified 09/11/23 12:20 (Dairy) [Dairy] soy Allergy Anaphylaxis Verified 09/11/23 12:20 wheat Allergy Unknown Verified 09/11/23 12:20 amoxicillin AdvReac Nausea & Verified 09/11/23 12:20 Vomiting & Diarrhea ibuprofen AdvReac Nausea & Verified 09/11/23 12:20 Vomiting & Diarrhea Review of Systems ROS Statement: Those systems with pertinent positive or pertinent negative responses have been documented in the HPI. ROS Other: All systems not noted in ROS Statement are negative. Past Medical History Past Medical History: GERD/Reflux, Thyroid Disorder Additional Past Medical History / Comment(s): Multiple food allergies and seasonal allergies, gets allergy shots Q7days. Hashimotos. History of Any Multi-Drug Resistant Organisms: None Reported Past Surgical History: Section, Hysterectomy, Orthopedic Surgery, Tonsillectomy Additional Past Surgical History / Comment(s): Right calf muscle release, right foot mortons neuroma removed, EGD with dilation, right carpal tunnel surgery, deviated septum surgery. Past Anesthesia/Blood Transfusion Reactions: No Reported Reaction, Motion Si ckness Past Psychological History: No Psychological Hx Reported Smoking Status: Never smoker Past Alcohol Use History: None Reported Past Drug Use History: None Reported - Past Family History Mother Family Medical History: No Reported History General Exam Limitations: no limitations General appearance: alert, in no apparent distress Head exam: Present: atraumatic, normocephalic Eye exam: Present: normal appearance, PERRL ENT exam: Present: mucous membranes dry Respiratory exam: Present: normal lung sounds bilaterally. Absent: respiratory distress, wheezes Cardiovascular Exam: Present: normal rhythm, tachycardia GI/Abdominal exam: Present: tenderness (generalized tenderness to palpation). Absent: distended, rigid Neurological exam: Present: alert, oriented X3 Psychiatric exam: Present: normal affect, normal mood Skin exam: Present: warm, dry, intact. Absent: cyanosis, diaphoretic Course Vital Signs 02/24/24 22:38 Temperature 97.5 F L Pulse Rate 112 H Respiratory 20 Rate Blood Pressure 119/75 O2 Sat by Pulse 95 Oximetry Medical Decision Making - Medical Decision Making Was pt. sent in by a medical professional or institution ([facility] Pompa, ACTUARIAL SCIENCE TEACHER, urgent care, hospital, or [facility]...) When possible be specific @ -No Did you speak to anyone other than the patient for history (EMS, parent, family, police, friend...)? What history was obtained from this source @ -No Did you review nursing and triage notes (agree or disagree)? Why? @ -I reviewed and agree with nursing and triage notes Were old charts reviewed (outside hosp., previous admission, EMS record, old EKG, old radiological studies, urgent care reports/EKG's, [facility] records)? Report findings @ -No old charts were reviewed Differential Diagnosis (chest pain, altered mental status, abdominal pain women, abdominal pain men, vaginal bleeding, weakness, fever, dyspnea, syncope, headache, dizziness, GI bleed, back pain, seizure, CVA, palpatations, mental health, musculoskeletal)? @ -[Differential Abdominal Pain Women: Appendicitis, Cholecystitis, diverticulosis, ischemic bowel, pancreatitis, hepatitis, UTI, gastroenteritis, AAA, incarcerated hernia, bowel obstruction, constipation, inflammatory bowel, hepatitis, peptic ulcer disease, splenic infarction, perforated viscus, vulvitis, ovarian torsion, PID, kidney stone, pl acenta abruption, this is not meant to be an all-inclusive list EKG interpreted by me (3pts min.). @ -As above X-rays interpreted by me (1pt min.). @ -None done CT interpreted by me (1pt min.). @Abdomen pelvis from outside facility reviewed, consistent with intraperitoneal free air. U/S interpreted by me (1pt. min.). @ -None done What testing was considered but not performed or refused? (CT, X-rays, U/S, labs)? Why? @ -None What meds were considered but not given or refused? Why? @ -None Did you discuss the management of the patient with other professionals (professionals i.e. LAURA Pompa, ACTUARIAL SCIENCE TEACHER, lab, RT, psych nurse, social services, bicycle assembler, teacher, gunnery/ordnance officer, piano case and bench assembler)? Give summary @ -Patient discussed with Dr. Weaver covering for general surgery, will admit, recommends continued antibiotics, repeat laboratory testing and maintaining the patient NPO. Was smoking cessation discussed for >3mins.? @ -No Was critical care preformed (if so, how long)? @ -Yes, intraperitoneal free air Were there social determinants of health that impacted care today? How? (Homelessness, low income, unemployed, alcoholism, drug addiction, transportation, low edu. Level, literacy, decrease access to med. care, group home, rehab)? @ -No Was there de-escalation of care discussed even if they declined (Discuss DNR or withdrawal of care, Hospice)? DNR status @ -No What co-morbidities impacted this encounter? (DM, HTN, Smoking, COPD, CAD, Cancer, CVA, ARF, Chemo, Hep., AIDS, mental health diagnosis, sleep apnea, morbid obesity)? @ -None Was patient admitted / discharged? Hospital course, mention meds given and route, prescriptions, significant lab abnormalities, going to OR and other pert inent info. @ -[53-year-old female with ruptured diverticulitis and intraperitoneal free air transferred from outside facility for surgical evaluation. Patient had white blood cell count 24.5. Normal lactic. Antibiotics were initiated prior to transfer. Patient will be continued on IV fluids, IV antibiotics, n.p.o. for surgical evaluation with Dr. Puentes, who is aware. Undiagnosed new problem with uncertain prognosis? @ -No Drug Therapy requiring intensive monitoring for toxicity (Heparin, Nitro, Insulin, Cardizem)? @ -No Were any procedures done? @ -No Diagnosis/symptom? @ -Ruptured diverticulitis with intraperitoneal free air, sepsis Acute, or Chronic, or Acute on Chronic? @ -[Acute Uncomplicated (without systemic symptoms) or Complicated (systemic symptoms)? @ -Default Side effects of treatment? @ -No Exacerbation, Progression, or Severe Exacerbation? @ -No Poses a threat to life or bodily function? How? (Chest pain, [place], [place], pneumonia, PE, COPD, DKA, ARF, appy, cholecystitis, CVA, Diverticulitis, Homicidal, Suicidal, threat to staff... and all critical care pts) @ -Yes, sepsis - Lab Data Result diagrams: 02/24/24 22:50 Lab Results 02/24/24 02/24/24 Range/Units 22:50 22:50 Sodium 137 (137-145) mmol/L Potassium 3.6 (3.5-5.1) mmol/L Chloride 108 H (98-107) mmol/L Carbon Dioxide 21 L (22-30) mmol/L Anion Gap 8 mmol/L BUN 9 (7-17) mg/dL Creatinine 0.70 (0.52-1.04) mg/dL Est GFR (CKD-EPI)AfAm >90 (>60 ml/min/1.73 sqM) Est GFR (CKD-EPI)NonAf >90 (>60 ml/min/1.73 sqM) Glucose 108 H (74-99) mg/dL Plasma Lactic Acid Nirmal 1.0 (0.7-2.0) mmol/L Calcium 7.8 L (8.4-10.2) mg/dL Total Bilirubin 1.3 (0.2-1.3) mg/dL AST 26 (14-36) U/L ALT 25 (4-34) U/L Alkaline Phosphatase 82 (38-126) U/L Total Protein 5.5 L (6.3-8.2) g/dL Albumin 2.9 L (3.5-5.0) g/dL Critical Care Time Critical Care Time: Yes Total Critical Care Time: 35 Disposition Clinical Impression: Sepsis, Diverticulitis, Peritoneal free air Disposition: ADMITTED IP TO THIS [facility] Condition: Serious Is patient prescribed a controlled substance at d/c from ED?: No Referrals: Laith Caraballo MD [Primary Care Provider] - 1-2 days Time of Disposition: 23:21
[2024-02-24 23:30] LABS: Basophils % (A) 0 %; Eosinophils # (A) 0.1 k/uL (0-0.7); Eosinophils % (A) 0 %; HCT 39.7 % (34.0-46.0); Lymphocytes # (A) 1.8 k/uL (1.0-4.8); Lymphocytes % (A) 9 %; MCH 29.9 pg (25.0-35.0); MCHC 32.8 g/dL (31.0-37.0); Mean Platelet Volume 8.8; Monocytes # (A) 1.4 k/uL (0-1.0); Monocytes % (A) 7 %; Neutrophils # (A) 16.4 k/uL (1.3-7.7); Neutrophils % (A) 82 %; Platelet Count 253 k/uL (150-450); RBC 4.36 m/uL (3.80-5.40); RDW 13.4 % (11.5-15.5); WBC 19.9 k/uL (3.8-10.6)
[2024-02-24] MEDS: SODIUM CHLORIDE 0.9% 1,000 ML IV SCH (23:55)
[2024-02-24] MEDS: ACETAMINOPHEN IV (For NPO) 1,000 MG in EMPTY BAG 1 BAG IVPB STA (23:55)
[2024-02-24] MEDS: PIPERACILLIN-TAZOBACTAM 3.375 GM in SODIUM CHLORIDE 0.9% 100 ML IVPB SCH (23:55)
[2024-02-25 01:09] LABS: INR 1.1 (<1.2); Partial Thromboplastin Time 24.6 sec (22.0-30.0); Prothrombin Time 11.9 sec (10.0-12.5)
[2024-02-25] MEDS: ACETAMINOPHEN IV (For NPO) 1,000 MG in EMPTY BAG 1 BAG IVPB SCH (08:40)
[2024-02-25] MEDS: PANTOPRAZOLE 40 MG/10 ML VIAL IV SCH (09:22)
--- NOTE | 2024-02-25 10:59 | CT ---
EXAMINATION TYPE: CT abdomen pelvis w con CT DLP: 1291.3 mGycm, Automated exposure control for dose reduction was used. DATE OF EXAM: 02/25/2024 10:19 AM COMPARISON: Outside CT 02/24/2024, we do not have the report CLINICAL INDICATION:Female, 53 years old with history of abd pain; lower abd pain TECHNIQUE: Axial CT of the abdomen and pelvis performed using IV contrast. Sagittal and coronal refo rmats were created on a separate workstation. Contrast used:100 mL of Isovue 300 with IV Contrast, (none if empty) Oral contrast used: without Oral Contrast (none if empty) FINDINGS: LOWER CHEST: Mild bibasilar scarring and/or subsegmental atelectasis. Normal heart size. ABDOMEN LIVER: Unremarkable GALLBLADDER AND BILE DUCTS: The gallbladder is surgically absent. Biliary tree appears mildly dilated , the CBD is up to 12 mm, tapers distally near the ampulla without clear evidence of an obstructing e tiology. PANCREAS: Unremarkable. SPLEEN: Unremarkable. ADRENAL GLANDS: Unremarkable. KIDNEYS AND URETERS: Kidneys enhance symmetrically. No evidence of hydronephrosis or visible renal ca lculus. The ureters are unremarkable. PELVIS BLADDER: Decompressed and not well assessed. REPRODUCTIVE: Appears surgically absent. ABDOMEN & PELVIS STOMACH AND BOWEL: Stomach and small bowel appear grossly intact. No evidence of obstruction. The gabe endix appears to be within normal limits. Mild to moderate stool throughout the colon without clear e vidence of a focal acute process identified. Bowel loops within the pelvis again seem to be somewhat thickened and inflamed, similar to the prior study. Multiple bubbles of gas again seen within the pel vis, at least some appear to be intraluminal but others could be extraluminal. What appears to be th e appendix looks normal. Mild/moderate stool throughout colon. PERITONEUM/RETROPERITONEUM: There are multiple foci of pneumoperitoneum demonstrated, which are als o present on the prior study. Fluid within the pelvis including the presacral space along with intrap elvic fat stranding, appears similar to before. There is slightly greater fluid seen tracking along t he posterior peritoneal surface, and left greater than right paracolic gutter regions. VASCULATURE: Aorta and major branches do not show significant atherosclerotic disease. There is no AA A. Major venous structures appear patent. 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 LYMPH NODES: No enlarged nodes by CT size criteria. SOFT TISSUE/ABDOMINAL WALL: Unremarkable MUSCULOSKELETAL: No acute osseous abnormalities. IMPRESSION: 1. Multiple small foci of pneumoperitoneum, also present on outside CT from yesterday, with no signi ficant interval change. In the absence of recent abdominal surgery, this is highly concerning for a p erforated viscus. However an exact origin is not identified by this exam. 2. Bowel loops within the pelvis again seem to be somewhat thickened and inflamed, similar to the pr ior study. Multiple bubbles of gas again seen within the pelvis, at least some appear to be intralumi nal but others could be extraluminal. 3. Fluid within the pelvis including the presacral space along with intrapelvic fat stranding, appea rs similar to before. There is slightly greater fluid seen tracking along the posterior peritoneal stuart rfaces, and left greater than right paracolic gutter regions. 4. Mildly dilated biliary tree, could be physiologic related to post-cholecystectomy status however suggest correlation with LFTs to exclude obstructing etiology.
[2024-02-25] MEDS: MORPHINE SULFATE 4 MG/ML SYRINGE IVP PRN (13:25)
--- NOTE | 2024-02-25 16:59 | P.CON ---
Consult Note - . Consult date: 02/25/24 Assessment/Plan:: patient is a 53-year-old female presenting with several days of abdominal pain with associated nausea. Patient states that she hasn't eaten in 2 days secondary to severe left lower quadrant abdominal pain. Patient states pain is worse with movement and has no alleviating factors. She states that this is the first time this summer and has arthritis. Patient was also seen an outside hospital that demonstrated diverticulitis on CT with small loculations of air. No signs of complicated diverticulitis at this time. ROS Statement: Those systems with pertinent positive or pertinent negative responses have been documented in the HPI. ROS Other: All systems not noted in ROS Statement are negative. Past Medical History Past Medical History: GERD/Reflux, Thyroid Disorder Additional Past Medical History / Comment(s): Multiple food allergies and seasonal allergies, gets allergy shots Q7days. Hashimotos. History of Any Multi-Drug Resistant Organisms: None Reported Past Surgical History: Section, Hysterectomy, Orthopedic Surgery, Tonsillectomy Additional Past Surgical History / Comment(s): Right calf muscle release, right foot mortons neuroma removed, EGD with dilation, right carpal tunnel surgery, deviated septum surgery. Past Anesthesia/Blood Transfusion Reactions: No Reported Reaction, Motion Sickness Past Psychological History: No Psychological Hx Reported Smoking Status: Never smoker Past Alcohol Use History: None Reported Past Drug Use History: None Reported Family Medical History: No Reported History General Exam Limitations: no limitations General appearance: alert, in no apparent distress Head exam: Present: atraumatic, normocephalic Eye exam: Present: normal appearance, PERRL ENT exam: Present: mucous membranes dry Respiratory exam: Present: normal lung sounds bilaterally. Absent: respiratory distress, wheezes Cardiovascular Exam: Present: normal rhythm, tachycardia GI/Abdominal exam: Present: tenderness (pain in the left lower quadrant). Absent: distended, soft Neurological exam: Present: alert, oriented X3 Psychiatric exam: Present: normal affect, normal mood Skin exam: Present: warm, dry, intact. Absent: cyanosis, diaphoretic 53-year-old female with uncomplicated diverticulitis and a small spicule of air with a small contained perforation First episode Repeat CTAP demonstrates few specks of air with inflammation of the sigmoid colon patient has persistent pain but has improved, patient is not peritoneal npo iv abx bowel rest reassess in am
[2024-02-26] MEDS: ONDANSETRON 4 MG/2 ML VIAL IVP PRN (08:11)
--- NOTE | 2024-02-26 09:35 | P.GSHP ---
History of Present Illness H&P Date: 02/26/24 Patient known to me from prior emergency cholecystectomy. She reports being on antibiotics from 1 week ago for sinus/tooth surgery. She developed constipation for 3 days, took laxatives, then had bowel movement. Her last colonoscopy was 2 years ago. She was not aware of prior diverticulosis. CT scan from outside facility and today reviewed with perforated diverticulitis without abscess. Clinically she reports feeling better from yesterday. PLAN: 1. Open laparotomy with colostomy versus antibiotic management reviewed according to findings on CT scan. Patient wanted antibiotic management with o bservation. 2. Adjust antibiotic to Zosyn and Flagyl with NPO, and scheduled IV tylenol and toradol. Usual improvement in 48 to 72 hrs for resolution of pain. 3. Resumption of home medications. 4. Repeat CBC and CMP, daily for 3 days. Past Medical History Past Medical History: GERD/Reflux, Thyroid Disorder Additional Past Medical History / Comment(s): Multiple food allergies and seasonal allergies, gets allergy shots Q7days. Hashimotos. History of Any Multi-Drug Resistant Organisms: None Reported Past Surgical History: Section, Hysterectomy, Orthopedic Surgery, Ton sillectomy Additional Past Surgical History / Comment(s): Right calf muscle release, right foot mortons neuroma removed, EGD with dilation, right carpal tunnel surgery, deviated septum surgery. Past Anesthesia/Blood Transfusion Reactions: No Reported Reaction, Motion Sickness Past Psychological History: No Psychological Hx Reported Smoking Status: Never smoker Past Alcohol Use History: None Reported Past Drug Use History: None Reported - Past Family History Mother Family Medical History: No Reported History Medications and Allergies Home Medications Medication Instructions Recorded Confirmed Type Cetirizine HCl [Zyrtec] 10 mg PO DAILY 10/26/17 02/25/24 History EPINEPHrine (Auto Inject) [Epipen] 0.3 mg IM ONCE PRN 10/26/17 02/25/24 History Levothyroxine Sodium [Synthroid] 50 mcg PO DAILY 10/26/17 02/25/24 History Omeprazole [PriLOSEC] 40 mg PO AC-SUPPER 08/25/22 02/25/24 History Ergocalciferol (Vitamin D2) 1,250 mcg PO MO 09/11/23 02/25/24 History [Drisdol (50,000 Iu)] Allergies Allergy/AdvReac Type Severity Reaction Status Date / Time soy Allergy Severe Anaphylaxis Verified 02/25/24 11:20 hydromorphone [From Dilaudid] Allergy Rash/Hives Verified 02/25/24 11:20 meperidine [From Demerol] Allergy Rash/Hives Verified 02/25/24 11:20 Milk Containing Products Allergy Nausea & Verified 02/25/24 11:20 (Dairy) Vomiting [Dairy] wheat Allergy Nausea & Verified 02/25/24 11:20 Vomiting amoxicillin AdvReac Nausea & Verified 02/25/24 11:20 Vomiting & Diarrhea gluten AdvReac Nausea & Verified 02/25/24 11:20 Vomiting & Diarrhea ibuprofen AdvReac Nausea & Verified 02/25/24 11:20 Vomiting & Diarrhea Surgical - Exam Vital Signs Temp Pulse Resp BP Pulse Ox 97.5 F L 112 H 20 119/75 95 02/24/24 22:38 02/24/24 22:38 02/24/24 22:38 02/24/24 22:38 02/24/24 22:38 Results - Labs 02/24/24 22:50 02/24/24 22:50
[2024-02-26] MEDS: KETOROLAC 15 MG/ML 1 ML VIAL IVP SCH (10:06)
[2024-02-26] MEDS: SODIUM CHLORIDE 0.9% 2,000 ML IV ONE (10:07)
[2024-02-26] MEDS: LEVOTHYROXINE 50 MCG TAB PO SCH (10:07)
[2024-02-26] MEDS: LORATADINE 10 MG TAB PO SCH (10:07)
[2024-02-26 11:12] LABS: Basophils % (A) 0 %; Eosinophils # (A) 0.4 k/uL (0-0.7); Eosinophils % (A) 3 %; HCT 35.2 % (34.0-46.0); HGB 11.4 gm/dL (11.4-16.0); Hypochromasia Slight; Lymphocytes # (A) 1.5 k/uL (1.0-4.8); Lymphocytes % (A) 11 %; MCH 30.2 pg (25.0-35.0); MCHC 32.2 g/dL (31.0-37.0); MCV 93.7 fL (80.0-100.0); Mean Platelet Volume 8.8; Monocytes # (A) 0.6 k/uL (0-1.0); Monocytes % (A) 4 %; Neutrophils # (A) 11.4 k/uL (1.3-7.7); Neutrophils % (A) 81 %; Platelet Count 242 k/uL (150-450); RBC 3.76 m/uL (3.80-5.40); RDW 13.1 % (11.5-15.5); WBC 14.1 k/uL (3.8-10.6)
[2024-02-26 11:23] LABS: ALT 17 U/L (4-34); AST 16 U/L (14-36); African American GFR (CKD) >90 (>60 ml/min/1.73 sqM); Albumin 2.7 g/dL (3.5-5.0); Alkaline Phosphatase 107 U/L (38-126); Anion Gap 10 mmol/L; Blood Urea Nitrogen 7 mg/dL (7-17); Calcium 8.1 mg/dL (8.4-10.2); Carbon Dioxide 18 mmol/L (22-30); Chloride 109 mmol/L (98-107); Glucose 65 mg/dL (74-99); Non-African American GFR(CKD) >90 (>60 ml/min/1.73 sqM); Potassium 3.5 mmol/L (3.5-5.1); Sodium 137 mmol/L (137-145); Total Protein 5.2 g/dL (6.3-8.2)
[2024-02-26] MEDS: metroNIDAZOLE-NS PMX 500 MG in SALINE 1 100ML.BAG IVPB SCH (12:08)
[2024-02-26] MEDS: ACETAMINOPHEN IV (For NPO) 1,000 MG in EMPTY BAG 1 BAG IVPB SCH (15:51)
[2024-02-27 09:18] LABS: Basophils % (A) 0 %; Eosinophils # (A) 0.5 k/uL (0-0.7); Eosinophils % (A) 5 %; HCT 36.2 % (34.0-46.0); HGB 11.5 gm/dL (11.4-16.0); Hypochromasia Slight; Lymphocytes # (A) 1.2 k/uL (1.0-4.8); Lymphocytes % (A) 13 %; MCH 29.8 pg (25.0-35.0); MCHC 31.7 g/dL (31.0-37.0); Mean Platelet Volume 8.3; Monocytes # (A) 0.5 k/uL (0-1.0); Monocytes % (A) 5 %; Neutrophils # (A) 6.9 k/uL (1.3-7.7); Neutrophils % (A) 76 %; Platelet Count 259 k/uL (150-450); RBC 3.85 m/uL (3.80-5.40); RDW 13.2 % (11.5-15.5); WBC 9.2 k/uL (3.8-10.6)
[2024-02-27 09:49] LABS: ALT 17 U/L (4-34); AST 20 U/L (14-36); African American GFR (CKD) >90 (>60 ml/min/1.73 sqM); Albumin 2.9 g/dL (3.5-5.0); Alkaline Phosphatase 126 U/L (38-126); Anion Gap 9 mmol/L; Blood Urea Nitrogen 6 mg/dL (7-17); Calcium 8.1 mg/dL (8.4-10.2); Carbon Dioxide 22 mmol/L (22-30); Chloride 110 mmol/L (98-107); Glucose 85 mg/dL (74-99); Non-African American GFR(CKD) >90 (>60 ml/min/1.73 sqM); Potassium 3.1 mmol/L (3.5-5.1); Sodium 141 mmol/L (137-145); Total Bilirubin 0.8 mg/dL (0.2-1.3); Total Protein 5.7 g/dL (6.3-8.2)
--- NOTE | 2024-02-27 12:10 | P.PN ---
Subjective Progress Note Date: 02/27/24 CHIEF COMPLAINT: Perforated diverticulitis without abscess HISTORY OF PRESENT ILLNESS: Patient reports her abdominal pain is decreasing. Denies any nausea or vomiting. Tolerating ice chips and popsicles. Afebrile. WBC is down from 14.1 to normal at 9.2 potassium 3.1 creatinine 0.66 PHYSICAL EXAM: VITAL SIGNS: Reviewed GENERAL: Well-developed in no acute distress. HEENT: No sclera icterus. Extraocular movements grossly intact. Moist buccal mucosa. Head is atraumatic, normocephalic. Hears conversational speech. No nasal drainage. NECK: Supple without lymphadenopathy. CHEST: Non-labored respirations and equal bilateral excursions. CARDIOVASCULAR: Palpable 2+ radial pulses. ABDOMEN: Soft. Nondistended. LLQ tenderness MUSCULOSKELETAL: No clubbing or cyanosis. NEUROLOGIC: No focal or lateralizing signs. Cranial nerves II through XII grossly intact. PSYCH: Appropriate affect. Alert and oriented to person, place and time. SKIN: Well perfused. Good skin turgor. ASSESSMENT: 1. Acute perforated diverticulitis without abscess 2. History of emergent cholecystectomy August 2023 3. Hypokalemia PLAN: -Continue antibiotic management with Zosyn and Flagyl -Continue pain management with IV Tylenol and Toradol -Replace potassium -Repeat labs in a.m. -Keep patient n.p.o. except for ice chips and popsicles -Encourage patient to increase activity level -DVT prophylaxis SC Heparin Physician Sampler And Test Preparer note has been reviewed by physician. Signing provider agrees with the documented findings, assessment, and plan of care. Objective - Vital Signs Vital signs: Vital Signs Temp 97.9 F 02/27/24 08:00 Pulse 83 02/27/24 08:00 Resp 18 02/27/24 08:00 BP 110/69 02/27/24 08:00 Pulse Ox 94 L 02/27/24 08:00 FiO2 Intake & Output 02/26/24 02/27/24 02/27/24 18:59 06:59 18:59 Intake Total 120 Balance 120 Weight 88.451 kg Intake: Oral 120 Other: Voiding Method Toilet Toilet # Voids 1 1 # Bowel Movements 0 - Labs CBC & Chem 7: 02/27/24 09:03 02/27/24 09:03 Labs: Abnormal Lab Results - Last 24 Hours (Table) 02/27/24 Range/Units 09:03 Potassium 3.1 L (3.5-5.1) mmol/L Chloride 110 H (98-107) mmol/L BUN 6 L (7-17) mg/dL Calcium 8.1 L (8.4-10.2) mg/dL Total Protein 5.7 L (6.3-8.2) g/dL Albumin 2.9 L (3.5-5.0) g/dL
[2024-02-27] MEDS: POTASSIUM CHLORIDE ER 20 MEQ TAB.ER PO STA (12:49)
--- NOTE | 2024-02-27 14:18 | CDI ---
Documentation Clarification Form Date: 02/27/2024 01:50:44 PM From: Dominique Encarnacion RN,CCDS Phone: [phone] Admit Date: 02/24/2024 11:15:00 PM Patient Name: Savita Cox Visit Number: [id number] Discharge Date: ATTENTION: The Clinical Documentation Specialists (CDI) and [facility] Coding Staff appreciate your assistance in clarifying documentation. Please respond to the clarification below the line at the bottom and electronically sign. The CDI & [facility] Coding staff will review the response and follow-up if needed. Please note: Queries are made part of the Legal Health Record. If you have any questions, please contact the author of this message via ITS. Dr. Ingris Puentes The patient has sepsis documentation in the ED clinical impression. Based on this information and the findings below, is there an additional diagnosis that is clinically appropriate for this patient? History/Risk Factors: Gerd/Reflux, Thyroid Disorder Clinical Indicators: 53-year-old female presenting as transfer from outside hospital with intraperitoneal free air and suspected ruptured diverticulitis. She has elevated white blood cell count at 24.5. Normal lactic acid 1.0. She was afebrile. CT which showed a moderate amount of intraperitoneal free air and suspected ruptured diverticulitis. Vitals signs: 119/75 112 20 97.5 95% RA 02/23 Labs: WBC 19.9, Neutrophils 16.4, Lactic acid 1.0 Treatment: .9 NS 2, 000 MLS Bolus 02/25-02/25 .9 NS 1,000 MLS @ 130 MLS/HR IV 02/23-02/26 Zosyn 3.375 GM IVPB Q 8HRS 02/24 -02/26 Flagyl 500MG IVPB Q6 HRS 02/25-02/26 Is there an additional diagnosis that is clinically appropriate for this patient? [ X ] Sepsis, present on admission [ ] Sepsis ruled out. [ ] Other, please specify [ ] Unable to determine SIRS Criteria: 2 or more of the following may indicate SIRS Temperature < 96.8F (36C) or > 101.0F (38.3C) Heart Rate > 90 bpm Respiratory Rate > 20 breaths/min or PaCO2 < 32 mmHg White Blood Cell Count > 12,000 or < 4,000 cells/mm3 or > 10% bands (Template Last Reviewed: November 2022) [ X ] Sepsis, present on admission KM 03/05/24 @ 1205 MTDD
[2024-02-27] MEDS: ACETAMINOPHEN IV (For NPO) 1,000 MG in EMPTY BAG 1 BAG IVPB SCH (17:58)
[2024-02-27] MEDS: HEPARIN SODIUM,PORCINE 5,000 UNIT/ML 1 ML VIAL SQ SCH (20:39)
[2024-02-28 10:25] LABS: Basophils % (A) 1 %; Eosinophils # (A) 0.4 k/uL (0-0.7); Eosinophils % (A) 5 %; HCT 33.2 % (34.0-46.0); HGB 10.4 gm/dL (11.4-16.0); Hypochromasia Slight; Lymphocytes # (A) 1.1 k/uL (1.0-4.8); Lymphocytes % (A) 15 %; MCH 29.2 pg (25.0-35.0); MCHC 31.4 g/dL (31.0-37.0); Mean Platelet Volume 8.1; Monocytes # (A) 0.6 k/uL (0-1.0); Monocytes % (A) 8 %; Neutrophils # (A) 5.1 k/uL (1.3-7.7); Neutrophils % (A) 69 %; Platelet Count 263 k/uL (150-450); RBC 3.57 m/uL (3.80-5.40); RDW 13.2 % (11.5-15.5); WBC 7.4 k/uL (3.8-10.6)
[2024-02-28 10:46] LABS: African American GFR (CKD) >90 (>60 ml/min/1.73 sqM); Anion Gap 7 mmol/L; Blood Urea Nitrogen 2 mg/dL (7-17); Calcium 7.7 mg/dL (8.4-10.2); Carbon Dioxide 23 mmol/L (22-30); Chloride 109 mmol/L (98-107); Glucose 89 mg/dL (74-99); Non-African American GFR(CKD) >90 (>60 ml/min/1.73 sqM); Potassium 3.2 mmol/L (3.5-5.1); Sodium 139 mmol/L (137-145)
--- NOTE | 2024-02-28 12:35 | P.PN ---
Subjective Progress Note Date: 02/28/24 CHIEF COMPLAINT: Perforated diverticulitis without abscess HISTORY OF PRESENT ILLNESS: Patient reports improvement in her abdominal pain. She is having flatus. White count remains normal at 7.4. She is afebrile. Potassium 3.2 PHYSICAL EXAM: VITAL SIGNS: Reviewed GENERAL: Well-developed in no acute distress. HEENT: No sclera icterus. Extraocular movements grossly intact. Moist buccal mucosa. Head is atraumatic, normocephalic. Hears conversational speech. No nasal drainage. NECK: Supple without lymphadenopathy. CHEST: Non-labored respirations and equal bilateral excursions. CARDIOVASCULAR: Palpable 2+ radial pulses. ABDOMEN: Soft. Nondistended. nontender MUSCULOSKELETAL: No clubbing or cyanosis. NEUROLOGIC: No focal or lateralizing signs. Cranial nerves II through XII grossly intact. PSYCH: Appropriate affect. Alert and oriented to person, place and time. SKIN: Well perfused. Good skin turgor. ASSESSMENT: 1. Acute perforated diverticulitis without abscess 2. History of emergent cholecystectomy August 2023 3. Hypokalemia PLAN: -Increase diet to full liquids -Continue antibiotic management with Zosyn and Flagyl -Continue pain management with IV Toradol -Patient continues to have hypokalemia. check magnesium level -Replace potassium -Consults infectious disease for antibiotic recommendations for perforated diverticulitis -Repeat labs in a.m. -Encourage patient to increase activity level -DVT prophylaxis SC Heparin Physician Sales And Marketing Engineer note has been reviewed by physician. Signing provider agrees with the documented findings, assessment, and plan of care. Objective - Vital Signs Vital signs: Vital Signs Temp 98.2 F 02/28/24 08:00 Pulse 76 02/28/24 08:00 Resp 18 02/28/24 08:00 BP 135/89 02/28/24 08:00 Pulse Ox 97 02/28/24 08:00 FiO2 Intake & Output 02/27/24 02/28/24 02/28/24 18:59 06:59 18:59 Other: Voiding Method Toilet Toilet Toilet # Voids 1 - Labs CBC & Chem 7: 02/28/24 09:58 02/28/24 09:58 Labs: Abnormal Lab Results - Last 24 Hours (Table) 02/27/24 Range/Units 09:03 Potassium 3.1 L (3.5-5.1) mmol/L Chloride 110 H (98-107) mmol/L BUN 6 L (7-17) mg/dL Calcium 8.1 L (8.4-10.2) mg/dL Total Protein 5.7 L (6.3-8.2) g/dL Albumin 2.9 L (3.5-5.0) g/dL
[2024-02-28] MEDS: POTASSIUM CHLORIDE ER 20 MEQ TAB.ER PO STA (13:05)
--- NOTE | 2024-02-28 22:45 | P.CONS ---
History of Present Illness - Reason for Consult Consult date: 02/28/24 Ruptured diverticulitis Requesting physician: Carmen Peña - Chief Complaint Abdominal pain x few days - History of Present Illness Patient is a 53-year-old female past medical history significant for reflux hypothyroidism Gurwinder thyroiditis presenting to the hospital 4 days ago as a transfer from outside facility with the patient presented with abdominal pain and was noticed to have a intraperitoneal free air concerning for acute diverticulitis patient complaining of lower abdominal pain on the lower pelvic area for few days before the patient had presented to outside facility describing the pain to be sharp moderate to severe intensity without any radiation has some constipation denies having any burning or frequency of urine and denies having any passing any gas or stool matter through urethra or vagina did have some chills but no high-grade fever outside facility CT showed moderate amount of intraperitoneal air suspected ruptured diverticulitis same finding was seen on a CAT scan done here patient did not have any fever on presentation to the hospital and throughout her hospital stay patient was not tachycardic hypotensive or hypoxic patient did have a white count of 19.9 on admission but has normalized to 7.4 today creatinine 0.57 and liver enzymes are normal no culture done during this admission patient has been treated with Zosyn and Flagyl infectious disease was consulted today for further management of antibiotic therapy Review of Systems Positive point and negatives has been mentioned in the HPI, complete review of systems was performed and all other systems are negative Past Medical History Past Medical History: GERD/Reflux, Thyroid Disorder Additional Past Medical History / Comment(s): Multiple food allergies and seasonal allergies, gets allergy shots Q7days. Hashimotos. History of Any Multi-Drug Resistant Organisms: None Reported Past Surgical History: Section, Hysterectomy, Orthopedic Surgery, Tonsillectomy Additional Past Surgical History / Comment(s): Right calf muscle release, right foot mortons neuroma removed, EGD with dilation, right carpal tunnel surgery, deviated septum surgery. Past Anesthesia/Blood Transfusion Reactions: No Reported Reaction, Motion Sickness Past Psychological History: No Psychological Hx Reported Smoking Status: Never smoker Past Alcohol Use History: None Reported Past Drug Use History: None Reported - Past Family History Mother Family Medical History: No Reported History Medications and Allergies Home Medications Medication Instructions Recorded Confirmed Type Cetirizine HCl [Zyrtec] 10 mg PO DAILY 10/26/17 02/25/24 History EPINEPHrine (Auto Inject) [Epipen] 0.3 mg IM ONCE PRN 10/26/17 02/25/24 History Levothyroxine Sodium [Synthroid] 50 mcg PO DAILY 10/26/17 02/25/24 History Omeprazole [PriLOSEC] 40 mg PO AC-SUPPER 08/25/22 02/25/24 History Ergocalciferol (Vitamin D2) 1,250 mcg PO MO 09/11/23 02/25/24 History [Drisdol (50,000 Iu)] Acetaminophen Tab [Tylenol] 1,000 mg PO Q6HR PRN #30 tablet 02/29/24 Rx cefUROXime axetiL [Ceftin] 500 mg PO BID 10 Days #20 tab 02/29/24 Rx metroNIDAZOLE [Flagyl] 500 mg PO TID 10 Days #30 tab 02/29/24 Rx Allergies Allergy/AdvReac Type Severity Reaction Status Date / Time soy Allergy Severe Anaphylaxis Verified 02/25/24 11:20 hydromorphone [From Dilaudid] Allergy Rash/Hives Verified 02/25/24 11:20 meperidine [From Demerol] Allergy Rash/Hives Verified 02/25/24 11:20 wheat Allergy Nausea & Verified 02/25/24 11:20 Vomiting amoxicillin AdvReac Nausea & Verified 02/25/24 11:20 Vomiting & Diarrhea gluten AdvReac Nausea & Verified 02/25/24 11:20 Vomiting & Diarrhea ibuprofen AdvReac Nausea & Verified 02/25/24 11:20 Vomiting & Diarrhea Physical Exam Vitals: Vital Signs Temp Pulse Resp BP Pulse Ox 02/28/24 08:00 98.2 F 76 18 135/89 97 02/28/24 03:45 97.9 F 77 18 134/64 98 02/28/24 01:22 80 18 02/28/24 00:00 98.6 F 80 18 129/72 96 02/27/24 20:00 98.1 F 78 18 140/67 95 02/27/24 16:00 97.6 F 78 18 141/75 97 02/27/24 14:00 78 18 02/27/24 12:00 97.7 F 74 18 130/81 93 L Intake and Output 02/27/24 02/28/24 02/28/24 22:59 06:59 14:59 Other: Voiding Method Toilet Toilet Toilet # Voids 1 GENERAL DESCRIPTION: Middle-aged female e lying in bed, no distress. No tachypnea or accessory muscle of respiration use. HEENT: Shows Pallor , no scleral icterus. Oral mucous membrane is dry. No pharyngeal erythema or thrush NECK: Trachea central, no thyromegaly. LUNGS: Unlabored breathing. Clear to auscultation anteriorly. No wheeze or crackle. HEART: S1, S2, regular rate and rhythm. No loud murmur ABDOMEN: Soft, no tenderness , guarding or rigidity, no organomegaly EXTREMITIES: No edema of feet. SKIN: No rash, no masses palpable. NEUROLOGICAL: The patient is awake, alert, oriented x3, mood and affect normal. Results CBC & Chem 7: 02/29/24 10:11 02/29/24 10:11 Labs: Abnormal Lab Results - Last 24 Hours (Table) 02/28/24 02/28/24 Range/Units 09:58 09:58 RBC 3.57 L (3.80-5.40) m/uL Hgb 10.4 L (11.4-16.0) gm/dL Hct 33.2 L (34.0-46.0) % Potassium 3.2 L (3.5-5.1) mmol/L Chloride 109 H (98-107) mmol/L BUN 2 L (7-17) mg/dL Calcium 7.7 L (8.4-10.2) mg/dL Assessment and Plan (1) Penicillin allergy Status: Acute Code(s): Z88.0 - ALLERGY STATUS TO PENICILLIN SNOMED Code(s): 05658829 (2) Diverticulitis Status: Acute Code(s): K57.92 - DVTRCLI OF INTEST, PART UNSP, W/O PERF OR ABSCESS W/O BLEED SNOMED Code(s): 573716743 (3) Peritoneal free air Status: Acute Code(s): K66.8 - OTHER SPECIFIED DISORDERS OF PERITONEUM SNOMED Code(s): 86303410 Plan: 1patient presented to hospital abdominal pain noticed to have intraperitoneal free air concerning for possible perforated diverticulitis however did not mention any evidence of intra-abdominal abscess patient did not have any fever during this admission however the white count is normalized currently no significant tenderness 2-patient to continue with the Zosyn while inpatient as there was no evidence of any intra-abdominal abscess consider a 10-day course of oral Ceftin and Flagyl on discharge 3-patient with amoxicillin on the chart however patient has tolerated Zosyn clinically doubt true penicillin allergy should be taken of the chart Multiple question concern answered We will follow on clinical condition and cultures to further adjust medication if needed Thank you for this consultation we will follow the patient along with you Dictation was produced using [employer] dictation software. please excuse any grammatical, word or spelling errors. Time with Patient: Greater than 30
[2024-02-29 09:06] VITALS: TEMP 98.1
[2024-02-29 11:21] LABS: HCT 32.5 % (34.0-46.0); HGB 10.2 gm/dL (11.4-16.0); MCH 28.8 pg (25.0-35.0); MCHC 31.5 g/dL (31.0-37.0); MCV 91.5 fL (80.0-100.0); Mean Platelet Volume 8.3; Platelet Count 284 k/uL (150-450); RBC 3.55 m/uL (3.80-5.40); RDW 13.3 % (11.5-15.5); WBC 8.5 k/uL (3.8-10.6)
[2024-02-29 11:50] LABS: African American GFR (CKD) >90 (>60 ml/min/1.73 sqM); Anion Gap 4 mmol/L; Blood Urea Nitrogen <2 mg/dL (7-17); Calcium 7.8 mg/dL (8.4-10.2); Carbon Dioxide 27 mmol/L (22-30); Chloride 108 mmol/L (98-107); Glucose 108 mg/dL (74-99); Magnesium 1.7 mg/dL (1.6-2.3); Non-African American GFR(CKD) >90 (>60 ml/min/1.73 sqM); Potassium 3.1 mmol/L (3.5-5.1); Sodium 139 mmol/L (137-145)
--- NOTE | 2024-02-29 13:20 | P.DS ---
Providers Date of admission: 02/24/24 23:15 Expected date of discharge: 02/29/24 Attending physician: Ingris Puentes Consults: 02/28/24 09:42 Consult Physician Routine Consulting Provider: Eladia Jorgensen Consult Reason/Comments: Ruptured diverticulitis Do you want consulting provider notified?: Yes Primary care physician: Laith Grigsby [facility] Course: Discharge diagnosis 1. Acute perforated diverticulitis without abscess 2. History of emergent cholecystectomy August 2023 3. Hypokalemia receiving supplement Hospital course This is a 53-year-old female who presented with left lower quadrant abdominal pain and nausea. CT scan done at outside hospital reported diverticulitis with small loculations of air. No abscess. Patient started on IV antibiotics. Her pain has improved. White count has normalized. She is tolerated diet. She is having bowel movements. She is ambulating. Her pain is controlled. Infectious disease recommending Ceftin and Flagyl for 10 more days at discharge. She is stable for discharge. Physician Heavy Duty Mechanic note has been reviewed by physician. Signing provider agrees with the documented findings, assessment, and plan of care. Patient Condition at Discharge: Stable Plan - Discharge Summary Discharge Rx Participant: Yes New Discharge Prescriptions: New cefUROXime axetiL [Ceftin] 500 mg PO BID 10 Days #20 tab metroNIDAZOLE [Flagyl] 500 mg PO TID 10 Days #30 tab Acetaminophen Tab [Tylenol] 1,000 mg PO Q6HR PRN #30 tablet PRN Reason: Pain Continue Levothyroxine Sodium [Synthroid] 50 mcg PO DAILY EPINEPHrine (Auto Inject) [Epipen] 0.3 mg IM ONCE PRN PRN Reason: Anaphylaxis Cetirizine HCl [Zyrtec] 10 mg PO DAILY Omeprazole [PriLOSEC] 40 mg PO AC-SUPPER Ergocalciferol (Vitamin D2) [Drisdol (50,000 Iu)] 1,250 mcg PO MO Discharge Medication List Cetirizine HCl [Zyrtec] 10 mg PO DAILY 10/26/17 [History] EPINEPHrine (Auto Inject) [Epipen] 0.3 mg IM ONCE PRN 10/26/17 [History] Levothyroxine Sodium [Synthroid] 50 mcg PO DAILY 10/26/17 [History] Omeprazole [PriLOSEC] 40 mg PO AC-SUPPER 08/25/22 [History] Ergocalciferol (Vitamin D2) [Drisdol (50,000 Iu)] 1,250 mcg PO MO 09/11/23 [History] Acetaminophen Tab [Tylenol] 1,000 mg PO Q6HR PRN #30 tablet 02/29/24 [Rx] cefUROXime axetiL [Ceftin] 500 mg PO BID 10 Days #20 tab 02/29/24 [Rx] metroNIDAZOLE [Flagyl] 500 mg PO TID 10 Days #30 tab 02/29/24 [Rx] Follow up Appointment(s)/Referral(s): Laith Caraballo MD [Primary Care Provider] - 1-2 days Ingris Puentes MD [STAFF PHYSICIAN] - 03/13/24 1:00 pm Activity/Diet/Wound Care/Special Instructions: Advance diet slowly to low fiber over the next couple of days Discharge Disposition: HOME SELF-CARE
[2024-02-29 13:25] VITALS: BP 127/75; PULSE 67; RESP 16
[2024-02-29] MEDS: POTASSIUM CHLORIDE ER 20 MEQ TAB.ER PO STA (14:26)
--- NOTE | 2024-03-01 12:47 | P.PN ---
Subjective Progress Note Date: 02/29/24 Principal diagnosis: Reason for follow-up is acute perforated diverticulitis Patient is a 53-year-old female past medical history significant for reflux hypothyroidism Gurwinder thyroiditis presenting to the hospital 5 days ago as a transfer from outside facility with the patient presented with abdominal pain and was noticed to have a intraperitoneal free air concerning for acute perforated diverticulitis, patient has been treated medically and did not have any surgery. On today's evaluation that is 02/29/2024, Patient is afebrile patient is currently on room air and denies having any shortness of breath, the patient denies any chest pain or cough, the patient denies any nausea vomiting denies any abdominal pain did have a bowel movement feeling better wants to go home. The patient white count is 8.5, creatinine 0.58 Objective - Vital Signs Vital signs: Vital Signs Temp 98.1 F 02/29/24 08:30 Pulse 67 02/29/24 11:35 Resp 16 02/29/24 11:35 BP 127/75 02/29/24 11:35 Pulse Ox 94 L 02/29/24 11:35 FiO2 Intake & Output 02/28/24 02/29/24 02/29/24 18:59 06:59 18:59 Other: Voiding Method Toilet Toilet # Voids 1 # Bowel Movements 3 - Exam GENERAL DESCRIPTION: Middle-aged female lying in bed in no distress RESPIRATORY SYSTEM: Unlabored breathing , decreased breath sounds at bases HEART: S1 S2 regular rate and rhythm , ABDOMEN: Soft , no tenderness EXTREMITIES: No edema feet - Labs CBC & Chem 7: 02/29/24 10:11 02/29/24 10:11 Labs: Abnormal Lab Results - Last 24 Hours (Table) 02/29/24 02/29/24 Range/Units 10:11 10:11 RBC 3.55 L (3.80-5.40) m/uL Hgb 10.2 L (11.4-16.0) gm/dL Hct 32.5 L (34.0-46.0) % Potassium 3.1 L (3.5-5.1) mmol/L Chloride 108 H (98-107) mmol/L BUN <2 L (7-17) mg/dL Glucose 108 H (74-99) mg/dL Calcium 7.8 L (8.4-10.2) mg/dL Assessment and Plan (1) Diverticulitis Status: Acute Code(s): K57.92 - DVTRCLI OF INTEST, PART UNSP, W/O PERF OR ABSCESS W/O BLEED SNOMED Code(s): 959755824 (2) Peritoneal free air Status: Acute Code(s): K66.8 - OTHER SPECIFIED DISORDERS OF PERITONEUM SNOMED Code(s): 29125552 Plan: 1patient presented to hospital abdominal pain noticed to have intraperitoneal free air concerning for possible perforated diverticulitis however did not mention any evidence of intra-abdominal abscess patient did not have any fever during this admission however the white count is normalized currently no significant tenderness 2-patient seem to have shown clinical improvement remains to be afebrile white count is normal plan is to finish therapy with oral Ceftin and Flagyl and close outpatient follow-up Discussed with the nursing staff Time with Patient: Less than 30
== END 2024-02-29 14:37 | disposition home or self-care (01) | DRG 872 ==
LOC: EC 22:24 → 3SCARD 23:15
PROVIDERS: ADMIT Surgery Plastic and Reconstructive Surgery; ATTEND Surgery Plastic and Reconstructive Surgery
PROC: 05HC33Z Insertion of Infusion Device into Left Basilic Vein, Percutaneous Approach (ICD-10-PCS; principal; 2024-02-27 14:00)
DX: A41.9 Sepsis, unspecified organism (principal); K57.80 Diverticulitis of intestine, part unspecified, with perforation and abscess without bleeding; E87.6 Hypokalemia; E06.3 Autoimmune thyroiditis; Z88.5 Allergy status to narcotic agent; Z88.8 Allergy status to other drugs, medicaments and biological substances; Z88.0 Allergy status to penicillin; Z91.011 Allergy to milk products; Z91.018 Allergy to other foods; Z79.890 Hormone replacement therapy
CPT/HCPCS: 36410; 36415; 74177; 76937; 80048; 80053; 83605; 83735; 85025; 85027; 85610; 85730; 86850; 86900; 86901; 96365; 96366; 96368; 96375; 96376; 99291

== ENCOUNTER 2024-04-18 07:44 | Day surgery (SDC) | payer BC ==
[2024-04-18 08:12] VITALS: TEMP 97.4
[2024-04-18] MEDS: IV FLUID CONTINUATION 1,000 ML IV ONE (08:17)
[2024-04-18] MEDS: LACTATED RINGERS 1,000 ML IV SCH (08:17)
--- NOTE | 2024-04-18 08:26 | P.GSHP ---
History of Present Illness H&P Date: 04/18/24 CHIEF COMPLAINT: Diverticulitis HISTORY OF PRESENT ILLNESS: The patient is a 53-year-old female who presents for diverticulitis. Lower endoscopy was offered for further evaluation and management. PAST MEDICAL HISTORY: Please see list. PAST SURGICAL HISTORY: Please see list. MEDICATIONS: Please see list. ALLERGIES: Please see list. SOCIAL HISTORY: No illicit drug use FAMILY HISTORY: No reports of Crohn disease or ulcerative colitis. REVIEW OF ORGAN SYSTEMS: CONSTITUTIONAL: No reports of fevers or chills. PHYSICAL EXAM: VITAL SIGNS: Stable GENERAL: Well-developed pleasant in no acute distress. HEENT: No scleral icterus. Extraocular movements grossly intact. Moist buccal mucosa. NECK: Supple without lymphadenopathy. CHEST: Unlabored respirations. Equal bilateral excursions. CARDIOVASCULAR: Regular rate and rhythm. Distal 2+ pulses. ABDOMEN: Soft, nontender, nondistended. MUSCULOSKELETAL: No clubbing, cyanosis, or edema. ASSESSMENT: 1. Diverticulitis. PLAN: 1. Recommend proceeding with a lower endoscopy Past Medical History Past Medical History: GERD/Reflux, Thyroid Disorder Additional Past Medical History / Comment(s): Multiple food allergies and seasonal allergies, Hashimotos, diverticulitis - hospitalized 02/23-02/29/24 History of Any Multi-Drug Resistant Organisms: None Reported Past Surgical History: Section, Cholecystectomy, Hysterectomy, Orthopedic Surgery, Tonsillectomy Additional Past Surgical History / Comment(s): Right calf muscle release, right foot mortons neuroma removed, EGD with dilation, right carpal tunnel surgery, deviated septum surgery, cholecystectomy 09/05, sinus lift 02/20/24 Past Anesthesia/Blood Transfusion Reactions: No Reported Reaction, Motion Sickness Smoking Status: Never smoker - Past Family History Mother Family Medical History: No Reported History Medications and Allergies Home Medications Medication Instructions Recorded Confirmed Type Cetirizine HCl [Zyrtec] 10 mg PO HS 10/26/17 04/18/24 History EPINEPHrine (Auto Inject) [Epipen] 0.3 mg IM ONCE PRN 10/26/17 04/18/24 History Levothyroxine Sodium [Synthroid] 50 mcg PO QAM 10/26/17 04/18/24 History Omeprazole [PriLOSEC] 40 mg PO HS 08/25/22 04/18/24 History Ergocalciferol (Vitamin D2) 1,250 mcg PO MO 09/11/23 04/18/24 History [Drisdol (50,000 Iu)] Aspirin/Acetaminophen/Caffeine 1 tab PO DAILY PRN 04/16/24 04/18/24 History [Excedrin Migraine Caplet] Azelastine/Fluticasone 1 spray EA NOSTRIL DAILY PRN 04/16/24 04/18/24 History [Azelastin-Flutic 137-50Mcg Spr] Olopatadine HCl [Pataday Twice 1 drop BOTH EYES BID PRN 04/16/24 04/18/24 History Daily Relief] Allergies Allergy/AdvReac Type Severity Reaction Status Date / Time soy Allergy Severe Anaphylaxis Verified 04/18/24 07:59 hydromorphone [From Dilaudid] Allergy Rash/Hives Verified 04/18/24 07:59 meperidine [From Demerol] Allergy Rash/Hives Verified 04/18/24 07:59 wheat Allergy Nausea & Verified 04/18/24 07:59 Vomiting amoxicillin AdvReac Nausea & Verified 04/18/24 07:59 Vomiting & Diarrhea gluten AdvReac Nausea & Verified 04/18/24 07:59 Vomiting & Diarrhea ibuprofen AdvReac Nausea & Verified 04/18/24 07:59 Vomiting & Diarrhea Surgical - Exam Vital Signs Temp Pulse Resp BP Pulse Ox 97.4 F L 83 16 131/73 95 04/18/24 08:11 04/18/24 08:11 04/18/24 08:11 04/18/24 08:11 04/18/24 08:11
[2024-04-18] MEDS ORDERED: PROPOFOL 10 MG/ML 20 ML VIAL IV ONE (08:28)
[2024-04-18] MEDS ORDERED: LIDOCAINE 1% INJ 10MG/ML (20 ML MDV) ONE (08:28)
--- NOTE | 2024-04-18 08:55 | P.PCN ---
Date of Procedure: 04/18/24 Operative Findings: PREOPERATIVE DIAGNOSIS: Diverticulitis History of diverticulitis with perforation POSTOPERATIVE DIAGNOSIS: Diverticulitis History of diverticulitis with perforation OPERATION: Colonoscopy to the cecum, ileocecal valve and appendiceal orifice. SURGEON: Ingris Puentes MD. ANESTHESIA: MAC. INDICATIONS: The patient is a 53-year-old female who presents for colonoscopy screening. Benefits and risks were described and informed consent was obtained. DESCRIPTION OF PROCEDURE: The patient had undergone Sutab prep. The patient had been brought into the operating room and laid in the left lateral decubitus position. After adequate intravenous sedation, the rectum was examined with 2% lidocaine jelly. External hemorrhoids were encountered. The rectal tone was within normal limits. No lesions were palpated in the rectal vault. An Olympus colonoscope was advanced until the cecum, ileocecal valve and appendiceal orifice were clearly viewed. The prep was excellent. Scattered diverticulosis was encountered. No colonic polyps were found. No evidence of focal colitis was found. Retroflexion of the scope demonstrated grade 3 internal hemorrhoids without active bleeding or inflammation. The colon was desufflated. The patient had tolerated the procedure well. Withdrawal time was over 6 minutes. FINDINGS: Aronchick preparation quality scale 1 (1-5) Internal hemorrhoids, grade 3 External prolapsed hemorrhoids, grade 3 No arteriovenous malformations. No adenomatous polyps. No focal colitis. Mild to moderate sigmoid diverticulosis Abdominal wall pressure use to advance the scope RECOMMENDATIONS: Lower endoscopy in 10 years, 2033 Plan - Discharge Summary Discharge Rx Participant: Yes New Discharge Prescriptions: Continue Levothyroxine Sodium [Synthroid] 50 mcg PO QAM EPINEPHrine (Auto Inject) [Epipen] 0.3 mg IM ONCE PRN PRN Reason: Anaphylaxis Cetirizine HCl [Zyrtec] 10 mg PO HS Omeprazole [PriLOSEC] 40 mg PO HS Olopatadine HCl [Pataday Twice Daily Relief] 1 drop BOTH EYES BID PRN PRN Reason: Allergy Symptoms Aspirin/Acetaminophen/Caffeine [Excedrin Migraine Caplet] 1 tab PO DAILY PRN PRN Reason: Headache Ergocalciferol (Vitamin D2) [Drisdol (50,000 Iu)] 1,250 mcg PO MO Azelastine/Fluticasone [Azelastin-Flutic 137-50Mcg Spr] 1 spray EA NOSTRIL DAILY PRN PRN Reason: Allergy Symptoms Discharge Medication List Cetirizine HCl [Zyrtec] 10 mg PO HS 10/26/17 [History] EPINEPHrine (Auto Inject) [Epipen] 0.3 mg IM ONCE PRN 10/26/17 [History] Levothyroxine Sodium [Synthroid] 50 mcg PO QAM 10/26/17 [History] Omeprazole [PriLOSEC] 40 mg PO HS 08/25/22 [History] Ergocalciferol (Vitamin D2) [Drisdol (50,000 Iu)] 1,250 mcg PO MO 09/11/23 [History] Aspirin/Acetaminophen/Caffeine [Excedrin Migraine Caplet] 1 tab PO DAILY PRN 02/04 [History] Azelastine/Fluticasone [Azelastin-Flutic 137-50Mcg Spr] 1 spray EA NOSTRIL DAILY PRN 04/16/24 [History] Olopatadine HCl [Pataday Twice Daily Relief] 1 drop BOTH EYES BID PRN 04/16/24 [ History] Follow up Appointment(s)/Referral(s): Ingris Puentes MD [STAFF PHYSICIAN] - 05/15/24 1:45 pm Patient Instructions/Handouts: Diverticulitis (DC), Diverticulitis Diet (GEN) Activity/Diet/Wound Care/Special Instructions: Repeat colonoscopy in 10 years2033 Discharge Disposition: HOME SELF-CARE
[2024-04-18 09:46] VITALS: BP 114/76; PULSE 69; RESP 18
== END 2024-04-18 09:58 | disposition home or self-care (01) ==
LOC: ORWHC2ENDO 07:44
PROVIDERS: ATTEND Surgery Plastic and Reconstructive Surgery
DX: K57.32 Diverticulitis of large intestine without perforation or abscess without bleeding (principal); K21.9 Gastro-esophageal reflux disease without esophagitis; E07.9 Disorder of thyroid, unspecified; Z79.890 Hormone replacement therapy; Z79.899 Other long term (current) drug therapy; Z88.0 Allergy status to penicillin; Z88.5 Allergy status to narcotic agent; Z88.6 Allergy status to analgesic agent; Z90.49 Acquired absence of other specified parts of digestive tract; Z90.710 Acquired absence of both cervix and uterus; Z79.82 Long term (current) use of aspirin
CPT/HCPCS: 45378; J2001; J2704

== ENCOUNTER → 2025-01-17 | Outpatient (CLI) | payer BC ==
--- NOTE | 2025-01-17 10:18 | CT ---
EXAMINATION TYPE: CT abdomen pelvis w con DATE OF EXAM: 01/17/2025 10:00 AM COMPARISON: CT abdomen pelvis most recent from 02/25/2024 CLINICAL INDICATION: Female, 54 years old with history of K57.92 diverticulitis; Pelvic and abdominal pain, hx diverticulitis. TECHNIQUE: Axial CT abdomen pelvis w con;Sagittal and coronal reformats were created on a separate w orkstation. Contrast used:100 mL of Isovue 300 with IV Contrast, (none if empty) Oral contrast used: with Oral Contrast (none if empty) CT DLP: 1503.60 mGycm, Automated exposure control for dose reduction was used. FINDINGS: LOWER CHEST: The heart is mildly enlarged size. ABDOMEN LIVER: Unremarkable GALLBLADDER AND BILE DUCTS: The gallbladder is surgically absent. PANCREAS: Unremarkable. SPLEEN: Unremarkable. ADRENAL GLANDS: Unremarkable. KIDNEYS AND URETERS: No evidence of hydronephrosis or renal calculus. The ureters are unremarkable. PELVIS BLADDER: No evidence for wall thickening or mass given limitations of exam. REPRODUCTIVE: Unremarkable. ABDOMEN & PELVIS STOMACH AND BOWEL: No evidence of bowel obstruction. The appendix is normal. Focal area of tube in fr ontal wall thickening of the mid transverse colon likely peristalsis Fat stranding changes around the sigmoid colon with blind-ending tract extending laterally to the left. There is large amount stool u pstream from this.. There is fat stranding changes around the sigmoid colon. PERITONEUM/RETROPERITONEUM: No evidence of pneumoperitoneum or free fluid. VASCULATURE: No evidence of aortic aneurysm. MUSCULOSKELETAL: No acute osseous abnormalities LYMPH NODES: No gross evidence for lymphadenopathy. SOFT TISSUE/ABDOMINAL WALL: Unremarkable IMPRESSION: Colitis/diverticulitis of the sigmoid colon with possible fistulous tract extending left laterally. N o organizing fluid collection. There is a large stool burden upstream from this area of inflammation possibly partially obstruction from the inflammation. [facility], , 01/17/2025 10:15 AM
== END | disposition home or self-care (01) ==
LOC: RADCTMAIN 07:27
PROVIDERS: ATTEND Emergency Medicine
DX: K57.92 Diverticulitis of intestine, part unspecified, without perforation or abscess without bleeding (principal)
CPT/HCPCS: 74177; Q9967

== ENCOUNTER 2025-03-19 01:41 | Emergency (ER) | payer BC ==
[2025-03-19 01:45] VITALS: RESP 18
[2025-03-19 02:19] LABS: Basophils # (A) 0.03 10*3/uL (0.00-0.10); Basophils % (A) 0.3 %; Eosinophils % (A) 1.1 %; HGB 14.4 g/dL (12.0-15.0); Lymphocytes # (A) 1.65 10*3/uL (0.90-5.00); Lymphocytes % (A) 18.4 %; MCH 29.3 pg (27.0-32.0); MCHC 33.5 g/dL (32.0-37.0); MCV 87.6 fL (80.0-97.0); Mean Platelet Volume 9.9 fL (9.5-12.2); Monocytes # (A) 0.75 10*3/uL (0.20-1.00); Monocytes % (A) 8.4 %; Neutrophils # (A) 6.42 10*3/uL (1.80-7.70); Neutrophils % (A) 71.6 %; Platelet Count 183 10*3/uL (140-440); RBC 4.91 10*6/uL (4.10-5.20); WBC 8.97 10*3/uL (4.50-10.00)
--- NOTE | 2025-03-19 02:19 | ED ---
Abdominal Pain HPI - General Chief Complaint: Abdominal Pain Stated Complaint: Abdominal Pain Time Seen by Provider: 03/19/25 01:57 Source: patient, RN notes reviewed Mode of arrival: wheelchair Limitations: no limitations - History of Present Illness Initial Comments: This is a 54-year-old female with history of diverticulitis presenting for LLQ pain (08/23) x 2 hours. Patient describes nonradiating pain as constant and cramping. Patient states she is scheduled for a bowel resection next week attributed to chronic history of perforated diverticulitis. Denies [id number] medication use or use of blood thinners. Denies fever, chills, chest pain, dyspnea, N/V/D, constipation, hematochezia, urinary symptoms. MD Complaint: abdominal pain Onset/Timin -: hour(s) Location: LLQ Radiation: none Migration to: no migration Severity scale (1-10): 10 Quality: cramping Consistency: constant Associated Symptoms: denies other symptoms - Related Data Home Medications Medication Instructions Recorded Confirmed Cetirizine HCl [Zyrtec] 10 mg PO HS 10/26/17 04/18/24 EPINEPHrine (Auto Inject) [Epipen] 0.3 mg IM ONCE PRN 10/26/17 04/18/24 Levothyroxine Sodium [Synthroid] 50 mcg PO QAM 10/26/17 04/18/24 Omeprazole [PriLOSEC] 40 mg PO HS 08/25/22 04/18/24 Ergocalciferol (Vitamin D2) 1,250 mcg PO MO 09/11/23 04/18/24 [Drisdol (50,000 Iu)] Aspirin/Acetaminophen/Caffeine 1 tab PO DAILY PRN 04/16/24 04/18/24 [Excedrin Migraine Caplet] Azelastine/Fluticasone 1 spray EA NOSTRIL DAILY PRN 04/16/24 04/18/24 [Azelastin-Flutic 137-50Mcg Spr] Olopatadine HCl [Pataday Twice 1 drop BOTH EYES BID PRN 04/16/24 04/18/24 Daily Relief] Previous Rx's Medication Instructions Recorded Ciprofloxacin HCl [Cipro] 500 mg PO BID 1 Days #14 tab 03/19/25 HYDROcodone/APAP 7.5-325MG [Cobb 1 tab PO Q6HR PRN 3 Days #12 tab 03/19/25 7.5-325] metroNIDAZOLE [Flagyl] 500 mg PO TID #21 tab 03/19/25 Allergies Allergy/AdvReac Type Severity Reaction Status Date / Time soy Allergy Severe Anaphylaxis Verified 03/19/25 01:45 hydromorphone [From Dilaudid] Allergy Rash/Hives Verified 03/19/25 01:45 meperidine [From Demerol] Allergy Rash/Hives Verified 03/19/25 01:45 wheat Allergy Nausea & Verified 03/19/25 01:45 Vomiting amoxicillin AdvReac Nausea & Verified 03/19/25 01:45 Vomiting & Diarrhea gluten AdvReac Nausea & Verified 03/19/25 01:45 Vomiting & Diarrhea ibuprofen AdvReac Nausea & Verified 03/19/25 01:45 Vomiting & Diarrhea Review of Systems ROS Statement: Those systems with pertinent positive or pertinent negative responses have been documented in the HPI. ROS Other: All systems not noted in ROS Statement are negative. Past Medical History Past Medical History: GERD/Reflux, Thyroid Disorder Additional Past Medical History / Comment(s): Multiple food allergies and seasonal allergies, Hashimotos, diverticulitis - hospitalized 02/23-02/29/24 History of Any Multi-Drug Resistant Organisms: None Reported Past Surgical History: Section, Cholecystectomy, Hysterectomy, Orthopedic Surgery, Tonsillectomy Additional Past Surgical History / Comment(s): Right calf muscle release, right foot mortons neuroma removed, EGD with dilation, right carpal tunnel surgery, deviated septum surgery, cholecystectomy 09/05, sinus lift 02/20/24 Past Anesthesia/Blood Transfusion Reactions: No Reported Reaction, Motion Sickness Past Psychological History: No Psychological Hx Reported Smoking Status: Never smoker Past Alcohol Use History: None Reported Past Drug Use History: None Reported - Past Family History Mother Family Medical History: No Reported History General Exam Limitations: no limitations General appearance: alert, in no apparent distress Head exam: Present: atraumatic, normocephalic, normal inspection Eye exam: Present: normal appearance, PERRL, EOMI. Absent: scleral icterus, con junctival injection, periorbital swelling ENT exam: Present: normal exam, mucous membranes moist Neck exam: Present: normal inspection. Absent: tenderness, meningismus, lymphadenopathy Respiratory exam: Present: normal lung sounds bilaterally. Absent: respiratory distress, wheezes, rales, rhonchi, stridor Cardiovascular Exam: Present: regular rate, normal rhythm, normal heart sounds. Absent: systolic murmur, diastolic murmur, rubs, gallop, clicks GI/Abdominal exam: Present: soft, tenderness (Positive LLQ TTP without guarding or rebound tenderness), normal bowel sounds. Absent: distended, guarding, rebound, rigid Extremities exam: Present: normal inspection, full ROM, normal capillary refill. Absent: tenderness, pedal edema, joint swelling, calf tenderness Back exam: Present: normal inspection Neurological exam: Present: alert, oriented X3, CN II-XII intact Psychiatric exam: Present: normal affect, normal mood Skin exam: Present: warm, dry, intact, normal color. Absent: rash Course Vital Signs 03/19/25 01:42 Temperature 98.1 F Pulse Rate 85 Respiratory 18 Rate Blood Pressure 123/71 O2 Sat by Pulse 95 Oximetry Medical Decision Making - Medical Decision Making Was pt. sent in by a medical professional or institution (, PA, ARCHITECTURAL COATING FINISHER, urgent care, hospital, or half-way...) When possible be specific @ -[No] Did you speak to anyone other than the patient for history (EMS, parent, family, police, friend...)? What history was obtained from this source @ -[No] Did you review nursing and triage notes (agree or disagree)? Why? @ -[I reviewed and agree with nursing and triage notes] Were old charts reviewed (outside hosp., previous admission, EMS record, old EKG, old radiological studies, urgent care reports/EKG's, half-way records)? Report findings @ -Surgical charts regarding diverticular surgery on 04/18/2024 reviewed Differential Diagnosis (chest pain, altered mental status, abdominal pain women, abdominal pain men, vaginal bleeding, weakness, fever, dyspnea, syncope, headache, dizziness, GI bleed, back pain, seizure, CVA, palpatations, mental health, musculoskeletal)? @ -Differential Abdominal Pain Women: Appendicitis, Cholecystitis, diverticulosis, ischemic bowel, pancreatitis, hepatitis, UTI, gastroenteritis, AAA, incarcerated hernia, bowel obstruction, constipation, inflammatory bowel, hepatitis, peptic ulcer disease, splenic infarction, perforated viscus, vulvitis, ovarian torsion, PID, kidney stone, placenta abruption, this is not meant to be an all-inclusive list EKG interpreted by me (3pts min.). @ -Not done X-rays interpreted by me (1pt min.). @ -[None done] CT interpreted by me (1pt min.). @ -[None done] U/S interpreted by me (1pt. min.). @ -[None done] What testing was considered but not performed or refused? (CT, X-rays, U/S, labs)? Why? @ -[None] What meds were considered but not given or refused? Why? @ -[None] Did you discuss the management of the patient with other professionals (professionals i.e. DrAileen, PA, ARCHITECTURAL COATING FINISHER, lab, RT, psych nurse, social organization professor, typesetter perforator operator, teacher, light armored vehicle officer, case advocate)? Give summary @ -[No] Was smoking cessation discussed for >3mins.? @ -[No] Was critical care preformed (if so, how long)? @ -[No] Were there social determinants of health that impacted care today? How? (Homelessness, low income, unemployed, alcoholism, drug addiction, transportation, low edu. Level, literacy, decrease access to med. care, fci, rehab)? @ -[No] Was there de-escalation of care discussed even if they declined (Discuss DNR or withdrawal of care, Hospice)? DNR status @ -[No] What co-morbidities impacted this encounter? (DM, HTN, Smoking, COPD, CAD, Cancer, CVA, ARF, Chemo, Hep., AIDS, mental health diagnosis, sleep apnea, morbid obesity)? @ -Diverticulitis Was patient admitted / discharged? Hospital course, mention meds given and route, prescriptions, significant lab abnormalities, going to OR and other pertinent info. @ -[hospital course] Undiagnosed new problem with uncertain prognosis? @ -[No] Drug Therapy requiring intensive monitoring for toxicity (Heparin, Nitro, Insulin, Cardizem)? @ -[No] Were any procedures done? @ -[No] Diagnosis/symptom? @ -[default] Acute, or Chronic, or Acute on Chronic? @ -Acute Uncomplicated (without systemic symptoms) or Complicated (systemic symptoms)? @ -Uncomplicated Side effects of treatment? @ -[No] Exacerbation, Progression, or Severe Exacerbation? @ -[No] Poses a threat to life or bodily function? How? (Chest pain, [place], [place], pneumonia, PE, COPD, DKA, ARF, appy, cholecystitis, CVA, Diverticulitis, Homicidal, Suicidal, threat to staff... and all critical care pts) @ -[No] - Lab Data Result diagrams: 03/19/25 02:11 03/19/25 02:11 Lab Results 03/19/25 03/19/25 03/19/25 Range/Units 02:11 02:11 02:11 WBC 8.97 (4.50-10.00) 10*3/uL RBC 4.91 (4.10-5.20) 10*6/uL Hgb 14.4 (12.0-15.0) g/dL Hct 43.0 (37.2-46.3) % MCV 87.6 (80.0-97.0) fL MCH 29.3 (27.0-32.0) pg MCHC 33.5 (32.0-37.0) g/dL Plt Count 183 (140-440) 10*3/uL MPV 9.9 (9.5-12.2) fL Immature Gran % (Auto) 0.2 % Neutrophils % 71.6 % Lymphocytes % 18.4 % Monocytes % 8.4 % Eosinophils % 1.1 % Basophils % 0.3 % Immature Gran # 0.02 (0.00-0.04) 10*3/uL Neutrophils # 6.42 (1.80-7.70) 10*3/uL Lymphocytes # 1.65 (0.90-5.00) 10*3/uL Monocytes # 0.75 (0.20-1.00) 10*3/uL Eosinophils # 0.10 (0.04-0.35) 10*3/uL Basophils # 0.03 (0.00-0.10) 10*3/uL Sodium 139 (137-145) mmol/L Potassium 3.4 L (3.5-5.1) mmol/L Chloride 103 (98-107) mmol/L Carbon Dioxide 23 (22-30) mmol/L Anion Gap 13 mmol/L BUN 11 (7-17) mg/dL Creatinine 0.81 (0.52-1.04) mg/dL Est GFR (CKD-EPI)AfAm >90 (>60 ml/min/1.73 sqM) Est GFR (CKD-EPI)NonAf 83 (>60 ml/min/1.73 sqM) Glucose 109 H (74-99) mg/dL Plasma Lactic Acid Nirmal 1.2 (0.7-2.0) mmol/L Calcium 9.0 (8.4-10.2) mg/dL Total Bilirubin 0.6 (0.2-1.3) mg/dL AST 50 H (14-36) U/L ALT 52 H (4-34) U/L Alkaline Phosphatase 90 (38-126) U/L Total Protein 7.4 (6.3-8.2) g/dL Albumin 4.3 (3.5-5.0) g/dL Disposition Clinical Impression: Diverticulitis Disposition: HOME SELF-CARE Condition: Fair Instructions (If sedation given, give patient instructions): Diverticulitis (ED), Diverticulitis Diet (ED) Additional Instructions: Tylenol every 4 hours for pain. Notify surgeon of recent diagnosis. Return to ER if experiencing worsening pain, fever, nausea/vomiting, blood in stool. Follow-up with PCP in the next 24-48 hours. Is patient prescribed a controlled substance at d/c from ED?: Yes When asked, does pt state using other controlled substances?: No If prescribed controlled substance>3 days was MAPS reviewed?: Yes If opioid is for acute pain is fill amount 7 days or less?: Yes Referrals: Laith Caraballo MD [Primary Care Provider] - 1-2 days Time of Disposition: 04:10
[2025-03-19] MEDS: MORPHINE SULFATE 4 MG/ML SYRINGE IVP STA (02:24)
[2025-03-19 02:28] LABS: Appearance,Urine Clear (Clear); Bilirubin,Urine Negative (Negative); Blood,Urine Negative (Negative); Color,Urine Yellow; Glucose,Urine (UA) Negative (Negative); Ketones,Urine 2+ (Negative); Leukocyte Esterase,Urine Negative (Negative); Nitrite,Urine Negative (Negative); PH, Urine 6.5 (5.0-8.0); Protein,Urine Trace (Negative); Specific Gravity,Urine 1.025 (1.001-1.035)
[2025-03-19] MEDS: SODIUM CHLORIDE 0.9% 1,000 ML IV STA (02:34)
[2025-03-19 02:35] LABS: ALT 52 U/L (4-34); AST 50 U/L (14-36); African American GFR (CKD) >90 (>60 ml/min/1.73 sqM); Albumin 4.3 g/dL (3.5-5.0); Alkaline Phosphatase 90 U/L (38-126); Anion Gap 13 mmol/L; Blood Urea Nitrogen 11 mg/dL (7-17); Carbon Dioxide 23 mmol/L (22-30); Chloride 103 mmol/L (98-107); Glucose 109 mg/dL (74-99); Non-African American GFR(CKD) 83 (>60 ml/min/1.73 sqM); Potassium 3.4 mmol/L (3.5-5.1); Sodium 139 mmol/L (137-145); Total Bilirubin 0.6 mg/dL (0.2-1.3); Total Protein 7.4 g/dL (6.3-8.2)
[2025-03-19] MEDS: KETOROLAC 15 MG/ML 1 ML VIAL IVP STA (03:03)
[2025-03-19] MEDS: ONDANSETRON 4 MG/2 ML VIAL IVP STA (03:26)
--- NOTE | 2025-03-19 03:43 | CT ---
EXAM: CT Abdomen and Pelvis With Intravenous Contrast CLINICAL HISTORY: LLQ pain, history of diverticulitis TECHNIQUE: Axial computed tomography images of the abdomen and pelvis with intravenous contrast. CTDI is 26.4 mGy and DLP is 1331 mGy-cm. This CT exam was performed using one or more of the following dose reduction techniques: automated exposure control, adjustment of the mA and/or kV according to patient size, and/or use of iterative reconstruction technique. COMPARISON: CT abdomen and pelvis with contrast dated 01/17/2025 FINDINGS: Lung bases: Unremarkable. No mass. No consolidation. Mediastinum: Small hiatal hernia. ABDOMEN: Liver: Unremarkable. No mass. Gallbladder and bile ducts: Cholecystectomy. Common bile duct is prominent measuring 10 cm in diameter. No common bile duct stone is seen. Pancreas: Unremarkable. No mass. No ductal dilation. Spleen: Unremarkable. No splenomegaly. Adrenals: Unremarkable. No mass. Kidneys and ureters: Kidneys demonstrate normal enhancement without pyelonephritis or hydronephrosis. Delayed phase imaging through the renal collecting systems is unremarkable. Stomach and bowel: The stomach is predominately decompressed with minimal retained oral contents and fluid. No evidence for focal high- grade bowel obstruction. Mild stool burden. The descending and sigmoid colon is predominately decompressed. There is asymmetric mucosal thickening with regional diverticula and pericolonic fat stranding noted. PELVIS: Appendix: A normal caliber appendix is noted in the right lower quadrant. Bladder: Unremarkable. No mass. Reproductive: Unremarkable as visualized. ABDOMEN and PELVIS: Intraperitoneal space: Trace free fluid in the pelvis adjacent to the sigmoid colon. No definite loculation. No free air. Bones/joints: No acute fracture. No dislocation. Soft tissues: Unremarkable. 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 There is a normal right-sided configuration of the suprarenal IVC. The aorta is normal in caliber without dissection or aneurysm. Lymph nodes: Unremarkable. No enlarged lymph nodes. IMPRESSION: 1. The descending and sigmoid colon is predominately decompressed. There is asymmetric mucosal thickening with regional diverticula and pericolonic fat stranding noted. Findings are most consistent with sigmoid diverticulitis. Focal colitis is considered less likely. 2. Trace free fluid in the pelvis adjacent to the sigmoid colon. No definite loculation. 3. Common bile duct is prominent measuring 10 cm in diameter. This is likely related to cholecystectomy. Please correlate with bilirubin levels.
[2025-03-19] MEDS: HYDROcodone/APAP 7.5-325MG 1 EACH TAB PO ONE (04:30)
[2025-03-19] MEDS: POTASSIUM CHLORIDE ER 20 MEQ TAB.ER PO STA (04:31)
[2025-03-19] MEDS: CIPROFLOXACIN HCL 500 MG TAB PO STA (04:31)
[2025-03-19] MEDS: metroNIDAZOLE 500 MG TAB PO STA (04:31)
[2025-03-19] MEDS: ACETAMINOPHEN TAB 500 MG TAB PO STA (04:31)
[2025-03-19 04:33] VITALS: BP 138/74; PULSE 89; TEMP 98.3
== END 2025-03-19 04:50 | disposition home or self-care (01) ==
LOC: EC 01:41
DX: K57.92 Diverticulitis of intestine, part unspecified, without perforation or abscess without bleeding (principal); Z88.5 Allergy status to narcotic agent; Z88.0 Allergy status to penicillin; Z88.6 Allergy status to analgesic agent; Z88.8 Allergy status to other drugs, medicaments and biological substances
CPT/HCPCS: 36415; 80053; 83605; 85025; 81003; 74177; 99284; 96374; 96375 ×2; 96361 ×2; J2270; J2405; J1885; Q9967